=== PATIENT | female | born 1980 | race Caucasian/White ===

== ENCOUNTER 2023-04-29 09:33 | Outpatient (CLI) | payer BC, SELFPAY ==
[2023-04-29 10:02] LABS: Hematocrit 39.6 % (37.0-47.0); Hemoglobin 12.9 g/dL (12.0-15.0); Mean Corpuscular HGB Conc 32.6 g/dl (32-36); Mean Corpuscular Hemoglobin 29.1 pg (26-34); Mean Corpuscular Volume 89.2 fl (80-100); Mean Platelet Volume 8.6 fl (7.4-10.4); Platelet Count Result 331 k/mm3 (150-375); Red Blood Count 4.44 M/mm3 (4.2-5.4); Red Cell Distribution Width 13.4 % (11.5-14.5); White Blood Count 8.5 K/mm3 (4.5-10.0)
[2023-04-29 11:44] LABS: Alanine Aminotransferase 28 U/L (6-35); Albumin Level 4.5 g/dL (3.5-5.1); Alkaline Phosphatase 58 U/L (38-126); Anion Gap 11 mmol/L (8-16); Aspartate Amino Transferase 24 U/L (14-36); Bilirubin,Total 0.5 mg/dL (0.2-1.3); Blood Urea Nitrogen 15 mg/dL (7-17); Calcium 9.5 mg/dL (8.4-10.2); Carbon Dioxide 25 mmol/L (22-30); Chloride 104 mmol/L (98-107); Cholesterol 277 mg/dL (0-200); Estimated Glomerular Filt Rate > 60; Glucose 108 mg/dL (65-110); HDL Direct 34 mg/dL; Potassium 4.2 mmol/L (3.4-5.0); Sodium 140 mmol/L (137-145); Triglycerides 518 mg/dL (<150)
[2023-04-29 11:55] LABS: LDL Cholesterol Direct 142 mg/dL
[2023-04-29 11:58] LABS: Vitamin D 25 Hydroxy 21.5 ng/mL
== END 2023-04-29 09:34 | disposition home or self-care (01) ==
PROVIDERS: Visit Provider Internal Medicine Hematology & Oncology
DX: E78.2 Mixed hyperlipidemia (principal); E55.9 Vitamin D deficiency, unspecified
CPT/HCPCS: 36415; 80053; 80061; 82306; 85027

== ENCOUNTER 2024-11-09 19:05 | Emergency (ER) | payer OTHER, SELFPAY ==
--- NOTE | ~2024-11-09 | XR_ITS ---
XR finger 2nd RT min 2V Ordering provider: Nikkie Williamson APRN History: . SMASHING INJURY, DORSAL PHALANX PAIN AT PROXIMAL NAIL . Comparison: None. FINDINGS: BONES: Small bony fragment is seen adjacent the distal phalanx tuft medially. JOINT SPACES: Normal. SOFT TISSUES: Normal. IMPRESSION: Chip fracture in the tuft of the second finger distal phalanx. Reviewed, dictated and finalized at location A.
--- OUTSIDE RECORDS SUMMARY | 2024-11-09 19:07 | XMS_ITS | Clinical Summary ---
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 Name Role Phone [place], Irais Phillip MD Unavailable [phone] Javier Sethi MD Primary Care Provider [phone] Allergies Active Allergy Reactions Criticality Noted Date Comments Amitriptyline Other (See comments) Reaction: weight gain, Divalproex Other (See comments) Low Reaction: triggers migraine headaches, Methoserpidine Agitation,Chills,Diz zines s,Sweating High 12/19/2021 Metoprolol Shortness of breath, Other (See comments) Reaction: sob, chest pain, Propranolol Vision changes Medium Reaction: blurred vision, Topiramate Other (See comments) Reaction: difficulty concentrating, Verapamil Palpitations Reaction: palpitations, Medications cetirizine (ZyrTEC) 10 mg tablet Take 1 tablet (10 mg total) by mouth daily Active acetaminophen ER (TYLENOL) 650 mg 8 hr tablet Take 1 tablet (650 mg total) by mouth every 4 (four) hours as needed for pain Active diclofenac DR (VOLTAREN) 75 mg EC tablet Take 1 tablet (75 mg total) by mouth 2 (two) times a day 60 tablet 2 05/08/20 20 Active promethazine (PHENERGAN) 25 mg tabletIndication s:Nausea Take 1 tablet (25 mg total) by mouth every 6 (six) hours as needed for nausea or vomiting 30 tablet 12/18/19 21 Active venlafaxine XR (EFFEXOR-XR) 75 mg 24 hr capsule 09/17/19 24 Active eletriptan (RELPAX) 40 mg tablet TAKE ONE TABLET BY MOUTH TWO TIMES A DAY NEEDED FOR MIGRAINE. MAY REPEAT IN TWO HOURS IF UNRESOLVED. DO NOT EXCEED TWO TABLETS IN TWENTY-FOUR HOURS 6 tablet 5 12/04/19 24 Active ALPRAZolam XR (XANAX XR) 0.5 mg 24 hr tablet Take 1 tablet (0.5 mg total) by mouth every morning Active erenumab-aooe (Aimovig Autoinjector) 70 mg/mL auto-injector subcutaneous injection Inject 1 mL (70 mg total) under the skin every 30 (thirty) days 3 mL 2 07/04/19 25 Active losartan (COZAAR) 25 mg tabletIndication s:Hypertension, essential TAKE 1 TABLET (25 MG) BY MOUTH DAILY 30 tablet 11 07/04/19 25 Active cholecalciferol (VITAMIN D-3) 50,000 unit capsuleIndicatio ns:Vitamin D deficiency Take 1 capsule (50,000 Units total) by mouth once a week 12 capsule 1 08/16/19 25 Active Xywav 0.5 gram/mL solution Take 4.5 g at bedtime then take 2.5 - 4 hours later take 4.5 g 540 mL 3 10/21/19 25 Active solriamfetoL (Sunosi) 150 mg tabletIndication s:Hypersomnolenc e Take 1 tablet (150 mg total) by mouth daily 30 tablet 5 10/22/19 25 Active famotidine (PEPCID) 20 mg tablet Take 1 tablet (20 mg total) by mouth once 025 Discontinued Xywav 0.5 gram/mL solution Take 4.5 g by mouth 2 (two) times a day 540 mL 3 06/23/19 25 025 Discontinued(Re order) Sunosi 150 mg tabletIndication s:Hypersomnolenc e Take 1 tablet (150 mg total) by mouth daily 30 tablet 1 09/20/19 25 025 Discontinued(Re order) Active Problems Problem Noted Date Diagnosed Date Severe obesity 10/21/2024 Type 2 narcolepsy 11/20/2023 Hypersomnolence 10/28/2023 Chronic fatigue 05/05/2023 Assessment & Plan (01/21/2024 4:09 PM CDT): It was explained to the patient how this is a clinical diagnosis of exclusion, and there is no specific treatment Exercise is highly recommended but again this is making the patient more symptomatic Will upgrade TFTs and cortisol level She has no evidence of anemia, kidney or hepatic dysfunction Assessment & Plan (05/05/2023 3:57 PM TOMB MAKER HELPER): Multifactorial, will check additional labs including iron panel and B12 as patient is having muscle pain. Recommend weight loss. Patient is not exercising. Patient is not getting adequate sleep, recommended at least 8 hours nightly if not 9. Blood pressure is uncontrolled, will check echocardiogram. Hypertension, essential 05/05/2023 Assessment & Plan (11/05/2023 4:43 PM CDT): Blood pressure is well controlled, no longer taking stimulant medication. Doing well with losartan, blood pressure today 128/86. Assessment & Plan (05/05/2023 3:53 PM TOMB MAKER HELPER): Denies visual changes, headaches, chest pain, shortness of breath. Blood pressure increase secondary to stimulant medication, instructed patient to taper Adderall and discontinue. Prescribed losartan 25 mg daily. 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 Discussed concerns for increased stroke risk and cardiovascular disease with uncontrolled blood pressure. Hypertriglyceridemia 05/05/2023 Assessment & Plan (05/05/2023 3:59 PM TOMB MAKER HELPER): Unable to review labs however patient reports recent triglyceride around 500. Stressed the need to follow a lower fat diet and limit starchy foods. Instructed patient to start a fish oil supplement. Repeat labs in 3 months Irritable bowel syndrome wit h both constipation and diarrhea 04/28/2022 Assessment & Plan (10/28/2022 5:38 PM CDT): Stable; good response to bentyl. Assessment & Plan (04/28/2022 5:16 PM TOMB MAKER HELPER): Encouraged patient to keep food/symptom diary. Recommended prn use of miralax for constipation. Will trial prn use of dicyclomine, reviewed medication scheduling. Follow up if no improvement. Chronic right shoulder pain 04/28/2022 Assessment & Plan (04/28/2022 5:21 PM TOMB MAKER HELPER): No injury, pain present for the past 1 year and worsening in the last 4 months. Discussed plan to refer to PT following imaging. Avoid aggravating activity as able, complete steroid taper and trial of prn muscle relaxer. Chronic migraine w/o aura w/ o status migrainosus, not intractable 04/19/2021 Class 2 obesity due to exces s calories without serious comorbidity with body mass index (BMI) of 37.0 to 37.9 in adult 03/12/2021 Assessment & Plan (05/20/2024 12:27 PM TOMB MAKER HELPER): Congratulated patient on weight loss, 15 lb weight loss in the last 4 months. Assessment & Plan (05/05/2023 3:57 PM TOMB MAKER HELPER): Weight is overall stable, patient has not lost or gained any weight recently. Encouraged increase dietary protein and lower carb diet. Assessment & Plan (10/28/2022 5:40 PM CDT): Encourage exercise and healthy diet. Assessment & Plan (04/28/2022 4:11 PM TOMB MAKER HELPER): Discussed healthy diet and importance of regular physical activity. Assessment & Plan (10/10/2021 2:48 PM CDT): Discussed healthy diet and importance of regular physical activity. Assessment & Plan (03/12/2021 2:57 PM CDT): Discussed healthy diet and importance of regular physical activity. MOJGAN (obstructive sleep apnea) 03/12/2021 Assessment & Plan (05/20/2024 12:28 PM TOMB MAKER HELPER): Continue nightly CPAP use. Started Xywave to help with daytime somnolence. Managed by sleep med, reports sig improvement in sleep and continued improvement in daytime fatigue. Assessment & Plan (11/05/2023 4:44 PM CDT): Nightly CPAP Assessment & Plan (10/28/2022 5:39 PM CDT): Nightly cpap use, following with sleep med. Patient started on modafinil for excessive daytime sleepiness. Assessment & Plan (04/28/2022 5:16 PM TOMB MAKER HELPER): Patient wearing cpap nightly, reports significant improvement in sleep quality and energy. Still feeling afternoon fatigue. Reviewed cpap compliance shannon on patients smartphone. Assessment & Plan (10/10/2021 2:48 PM CDT): Recommend sleep study. Referral placed to neurology. Assessment & Plan (03/12/2021 5:57 PM CDT): Lavon:11 reports excessive daytime fatigue, and snoring w/apnea. Given referral to sleep med. Fatigue 03/12/2021 Assessment & Plan (04/28/2022 5:15 PM TOMB MAKER HELPER): Some improvement with use of cpap. Discussed adding exercise to current regimen. Will check lab work and continue to monitor. Assessment & Plan (03/12/2021 5:57 PM CDT): Discussed differential diagnoses and multiple factors influencing fatigue including anemia, endocrinopathies, vitamin deficiencies, hormonal imbalance, inadequate sleep, poor diet, and lack of exercise. Encouraged healthy eating and regular physical activity. Reviewed sleep hygiene. Will continue to monitor. Encounter for screening mammogram for breast can cer 03/12/2021 Assessment & Plan (05/20/2024 12:24 PM TOMB MAKER HELPER): Mammogram ordered, encouraged patient to call and schedule. Assessment & Plan (11/05/2023 4:43 PM CDT): Ordered previously, encouraged patient to call and schedule mammogram Assessment & Plan (05/05/2023 3:58 PM TOMB MAKER HELPER): Mammogram ordered Assessment & Plan (10/28/2022 5:38 PM CDT): Encouraged patient to call and schedule mammogram, ordered at last OV. Assessment & Plan (03/12/2021 5:57 PM CDT): Aware to call and schedule mammogram. Continue monthly SBE. Allergic rhinitis 08/17/2018 Assessment & Plan (10/14/2021 5:27 PM CDT): Continue antihistamine. Recommended sinus irrigation followed by nasal glucocorticoid. Assessment & Plan (09/30/2018 3:38 PM CDT): Continue Nasal saline followed Nasacort daily, wean down to lowest possible dosage Assessment & Plan (08/17/2018 4:02 PM CDT): Nasal saline followed by Nasacort or Flonase 2 sprays into each nostril while looking down over the sink, do not sniff in or blow nose after use. Change CT Sinus to CT Sinus per [facility] protocol Chronic right maxillary sinusitis 08/09/2018 Assessment & Plan (08/09/2018 12:48 PM TOMB MAKER HELPER): Advised Pt to move forward with sinus CT considering clinical findings as well as worsening sinus pressure over the recent months of increasing migraines. While so move for with ENT consultation to complete after she completes her head CT. 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 In moving forward with this, recommended Flomax doubling up today, daily dosing continuously until following up with Urology, cyst pushing fluids, monitoring for stone straining urine, Toradol and Percocet only to take p.r.n. She does understand limiting the use of narcotics. Red flags when to present ER were discussed Follow up with Urology in regard to condition or certainly with us in the interim Insomnia 08/06/2017 Overview (03/12/2018): Failed benadryl due to next day fatigue, melatonin ineffective, Nortriptyline due to weight gain/dry mouth, lunesta ineffective. Assessment & Plan (03/12/2018 8:36 AM CDT): Ambien p.r.n.. Assessment & Plan (09/05/2017 9:35 AM CDT): Sleep hygiene discussed. Will try trazodone 1st. If fails will call back for trial of Belsomra. Finally will try Ambien if needed. We will see her back in 6 months with physical and fasting lab sooner if needed. Mixed hyperlipidemia 08/06/2017 Assessment & Plan (05/20/2024 12:25 PM TOMB MAKER HELPER): Labs ordered. Assessment & Plan (11/05/2023 4:43 PM CDT): Slight improvement, patient is aware of need to make significant diet changes. Will continue to monitor Assessment & Plan (10/28/2022 5:37 PM CDT): Recommended patient take fish oil supplement to improve trigs, reviewed diet recommendation. Will repeat labs and continue to monitor. Assessment & Plan (04/28/2022 5:17 PM TOMB MAKER HELPER): Will check labs and make recommendations as needed. Assessment & Plan (03/12/2021 5:56 PM CDT): Reviewed lipid. Discussed diet and exercise recommendations. ASCVD low risk. Assessment & Plan (04/18/2019 3:07 PM TOMB MAKER HELPER): Low risk for ASCVD and therefore recommend diet exercise. Assessment & Plan (03/12/2018 8:36 AM CDT): Diet and exercise recommended. Vitamin D deficiency 08/06/2017 Assessment & Plan (11/05/2023 4:43 PM CDT): Patient is taking vitamin-D supplement, vitamin-D is improved. Assessment & Plan (05/05/2023 3:52 PM TOMB MAKER HELPER): Patient is longer taking vitamin-D supplement did not refill this. Vitamin-D is never range. Discussed how this could be contributing to her chronic fatigue and stressed the need to take his medication as prescribed. Assessment & Plan (10/28/2022 3:34 PM CDT): No longer taking vitamin D supplement Assessment & Plan (04/28/2022 5:17 PM TOMB MAKER HELPER): No longer taking vitamin d supplement. 03/2021 vitamin D=15. Will check labs today. Assessment & Plan (10/14/2021 5:29 PM CDT): Continues cholecalciferol 50,000 units weekly. Assessment & Plan (04/18/2019 3:07 PM TOMB MAKER HELPER): Continue supplementation and check level in 1 year. Chronic pain of right wrist 06/16/2017 Assessment & Plan (06/16/2017 3:24 PM TOMB MAKER HELPER): Diclofenac refilled. Orthopedic consultation to provider patient's choice arranged. Anxiety disorder 03/25/2017 Overview (04/18/2019): BuSpar ineffective. Dr Gonzalez Assessment & Plan (10/14/2021 5:28 PM CDT): Stable; moods controlled with current regimen. Assessment & Plan (04/18/2019 3:08 PM TOMB MAKER HELPER): Stable on venlafaxine and Xanax and follow up with her psychiatrist as they direct. Assessment & Plan (03/12/2018 8:36 AM CDT): Stable on venlafaxine. Follow up with psychiatrist as they direct. Assessment & Plan (09/05/2017 9:34 AM CDT): Currently stable and uses Xanax only infrequently. Psychiatric referral due to multiple diagnoses and either failures or intolerance to previous medications. Assessment & Plan (06/16/2017 3:24 PM TOMB MAKER HELPER): Patient notes improvement in her underlying anxiety. Xanax was refilled solely for p.r.n. use for anxiety/panic attacks. Assessment & Plan (04/23/2017 8:59 AM TOMB MAKER HELPER): Patient understands Xanax is not a long-term plan. This medication is to be utilized solely for anxiety/panic attacks and should be reserved for severe symptoms. She understands the addictiveness of this medication and was encouraged to use sparingly. She states she felt great today she took the Effexor XR. She would like to go back on a dot to avoid serotonin syndrome will discontinue her Zofran and use Compazine its place. She was also given Toradol to use in lieu of Relpax. Plan of care was discussed in detail as well as risk of serotonin syndrome with concurrent use of Relpax and Zofran. She verbalized understanding and was in agreement with the plan of care. Will see her back on a routine basis certainly sooner if indicated. Assessment & Plan (04/03/2017 1:15 PM CDT): Patient notes poor response to Effexor. It has been discontinued. She has Xanax for p.r.n. use and may take this up to 3 times daily as needed. She is to reserve this solely for panic attacks. We have tried multiple antianxiety/anti anxiety medications in the past without success. With persistent complaints would strongly encourage her to pursue psychiatry consultation. She has a follow-up appointment here in a couple of weeks. We will re-evaluate at that time. Assessment & Plan (03/25/2017 3:49 PM CDT): Patient states she has tried and failed multiple antidepressant/antianxiety medications in the past. She has taken Xanax without ill side effect. We discussed addictive component of Xanax. It is very good of what it done as and will frequently cause addictive tendencies. We recommend against routine use of Xanax. It is appropriate treatment for anxiety and panic attacks. She was given a short supply to keep on hand only for anxiety and panic attacks. For her daily anxiety symptoms I recommended the addition of Effexor XR. We will start with 75 mg once daily. We discussed potential side effect of medications. We discussed her prior diagnosis of bipolar disorder. She is to watch for any change in her mental health. She is to contact me with development of mood swings or depressive symptoms. She has discussed this with her fiancee as well so he can keep an eye out. She will closely follow up here in 1 month for repeat evaluation and to determine her response to medication. She was encouraged to reach out to me in the interim with any signs or symptoms that are of concern to her. We discussed serotonin syndrome with Relpax in detail. 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 Acute pain of left shoulder 11/19/2016 Assessment & Plan (11/19/2016 10:52 AM CDT): I have recommended we proceed with physical therapy, eval and treat. Will obtain x-ray of the left shoulder prior to leaving the office today. Close follow-up here with absolutely any change in worsening or non improvement of condition. She offered no further complaints and was in agreement with the plan of care. Subacromial bursitis of left shoulder joint 11/06 Assessment & Plan (11/19/2016 10:52 AM CDT): Recommended Medrol Dosepak for anti-inflammatory effect. Physical therapy to eval and treat. Orthopedic consultation with persistent complaints. She is to contact the office with absolutely any change in worsening or non improvement in condition. She verbalized understanding and was in agreement with the plan of care. History of irritable bowel syndrome 07/21/2016 Overview (08/06/2017): Cannot tolerate nortriptyline due to weight gain and dry mouth. Assessment & Plan (09/05/2017 9:32 AM CDT): High-fiber diet. Probiotics. GI referral if worsens. Atypical migraine 06/23/2014 Assessment & Plan (10/14/2021 5:27 PM CDT): Recommended continued follow up with neurology. Migraines are stable at this time. No changes in current medication regimen. Assessment & Plan (08/09/2018 2:39 PM TOMB MAKER HELPER): Considering Pt has previously tried multiple different medications including amitriptyline, propranolol, Topamax for preventative therapy, is also on Effexor for anxiety with little to no changes in her prevention of migraines, will go ahead and try preventative therapy with use of monthly aimovig starting off at 70 mg along with p.r.n. Use of Relpax as previously prescribed, F/U here in 1 month for re- evaluation. Will consider neurology consultation if unable to control migraines with medication therapy. * Pt declined office urine test is recommended that she stated that she just could offer. Two days ago. Goiter 10/22/2013 Overview (09/10/2016): GOITER NOS Assessment & Plan (01/21/2024 4:09 PM CDT): Will update thyroid ultrasound and TFTs Bipolar affective disorder 10/22/2013 Overview (09/10/2016): MANIC-DEPRESSIVE NOS Assessment & Plan (11/05/2023 4:44 PM CDT): Medications currently refilled by Dr. Mcfadden, patient is in need of a new psychiatrist. Referral placed. We discussed benefits of counseling/cognitive behavioral therapy Assessment & Plan (03/12/2021 3:01 PM CDT): Follows with psychiatry, Dr. Gonzalez. Gastroesophageal reflux disease 10/22/2013 Overview (09/10/2016): ESOPHAGEAL REFLUX Assessment & Plan (04/18/2019 3:08 PM TOMB MAKER HELPER): Well controlled without medication. Assessment & Plan (09/05/2017 9:32 AM CDT): Continue current PPI and the patient is aware of the long-term risks posed by chronic PPI usage. Magnesium level will be checked periodically. Calcium supplementation recommended. Migraine 12/02/2012 Overview (06/03/2023): Combo of zofran, relpax, then toradol if no relief. Failed amitriptyline, propranolol, Topamax. Assessment & Plan (03/12/2021 3:02 PM CDT): Doing well on monthly aimovig with sig improvement and using relpax as needed. Assessment & Plan (04/18/2019 3:07 PM TOMB MAKER HELPER): Continue aimovig monthly with great results and then use Relpax as needed. Assessment & Plan (03/12/2018 8:35 AM CDT): Intolerant of prophylactic medication. Continue Relpax, prochlorperazine as needed. Toradol if no relief. Assessment & Plan (04/23/2017 9:02 AM TOMB MAKER HELPER): Toradol p.r.n. migraine headache. This is proven effective in the past. Compazine p.r.n. nausea associated with headaches. Non-toxic multinodular goiter 01/20/2012 Overview (09/10/2016): Multinodular goiter (nontoxic) Assessment & Plan (04/18/2019 3:10 PM TOMB MAKER HELPER): No change on ultrasound over multiple years. No current symptoms today. Check thyroid levels yearly and repeat ultrasound if symptoms dictate. Assessment & Plan (03/12/2018 8:35 AM CDT): Check yearly ultrasound and thyroid studies. Assessment & Plan (09/05/2017 9:32 AM CDT): Yearly TSH. Thyroid ultrasound. Resolved Problems Problem Noted Date Diagnosed Date Resolved Date Class 2 obesity due to exces s calories with body mass index (BMI) of 39.0 to 39.9 in adult 10/10/2021 05/20/2024 Assessment & Plan (01/21/2024 4:05 PM CDT): Encouraged to work on low calorie diet Will try phentermine, which also can help some with the fatigue Coccyx pain 10/25/2019 05/20/2024 Healthcare maintenance 04/18/201903/12 Assessment & Plan (04/18/2019 3:09 PM TOMB MAKER HELPER): Flu shot each March. Tetanus booster every 10 years. Diet exercise for weight loss discussed. Will see her back in 1 year for physical fasting lab sooner if needed. Contusion of right knee 11/30/201810/2020 Sprain of right knee, initial encounter 11/30/2018 03/12/2021 Arm contusion, right, initial encounter 11/30/2018 03/12/2021 Fall, accidental, initial encounter 11/30/2018 03/12/2021 Acute dysfunction of left eustachian tube 11/29/2018 11/29/2018 Benign paroxysmal positional vertigo of left ear 11/29/2018 11/29/2018 Assessment & Plan (11/29/2018 3:41 PM CDT): Clinically suggest of BPPV. Recommending p.r.n. Meclizine, and treatment of suspected ET dysfunction. Exercises given for Pt to implemented home, consultation for vestibular therapy w/o any improvement sx. RTC in 1-2 weeks w/o improvement or any worsening in sx. Cyst removal-right wrist x3 08/03/2018 08/03/2018 mortons neuroma; Comments: [facility] 07/24/2014 08/03/2018 08/03/2018 Postoperative visit 07/07/2018 08/03/19 19 Adnexal cyst 04/15/2018 08/03/2018 Bronchitis 04/03/2017 08/06/2017 Assessment & Plan (04/03/2017 1:14 PM CDT): Humidification, fluids, and rest were recommended. Patient was instructed to use albuterol inhaler as needed for bronchospasm/coughing fits. She may use Tessalon Perles p.r.n. cough during the day. She will reserve Cheratussin for use at bedtime. She is to observe for signs and symptoms of secondary infection which were reviewed. She is to contact the office should the symptoms arise. 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); Hypersomnia; MOJGAN (obstructive sleep apnea); Obesity, unspecified class, unspecified obesity type, unspecified whether serious comorbidity present; Hypersomnolence; Severe obesity (HCC) 10/21/2024 Telephone [facility] [address] [place] [address] [address] [place] [address] Vidhya Linares MA 09/01/2024 9:37 AM CDT - 09/01/2024 11:59 PM CDT Hospital Encounter [facility] [address] [place] [address] Abnormal mammogram of left breast Discharge Disposition: Discharge to home or self care 09/01/2024 9:37 AM CDT - 09/01/2024 11:59 PM CDT Hospital Encounter [facility] [address] [place] [address] Abnormal mammogram of left breast Discharge Disposition: Discharge to home or self care 09/01/2024 Results [facility] [address] [id number] Arelis Simmons NP Diagnostic Mammogram Left W [place] from Last 3 Months Immunizations Immunization Administration Dates Next Due COVID-19 MRNA (MODERNA) .5 M L (50 MCG) VACCINE (12 YEARS AND UP) 03/16/2023 COVID-19 mRNA (PFIZER) 0.3 m L (30 mcg) vaccine (12 years and up) 04/17/2023 DTaP 5 Pertussis 11/04/1985, 2,01/15/1981,11/10,1980 Hep B Vaccine 05/30/2013,01/03/2013,11/16/2012 Influenza, Quadrivalent, Spl it, Preservative Free, Intramuscular 03/21/2015,02/27/2014 Influenza, Trivalent, IM (MDV) 03/09/2023,2010 Influenza, Trivalent, Preser vative Free, Intramuscular 04/12/2024 Influenza, Unspecified 02/07/2023,2021,03/22/2021,03/12(Deferred: Patient Refused - getting at work),03/08/2020,03/08/2020,03/22/2019 ,03/22/2019,03/03/2019(Deferred: Patient ill today),03/09/2017 MMR 01/20/1991,10/15/1981 OPV 11/04/1985, 2,1980,08/30 PPD TEST 07/15/2023 Pfizer SARS-CoV-2 Monovalent Vaccination (12+ Yrs) PURPLE 05/23/2021 Pfizer Sars-Cov-2 Bivalent V accination (12+ YRS) 04/16/2022 Td, adsorbed 12/08/2011 Tdap 12/22/2011 Surgical History Surgery Date Site/Laterality Comments OTHER SURGICAL HISTORY 06/08/2007 - 06/07/2008 nasal/sinus surgery OTHER SURGICAL HISTORY 06/08/2010 - 06/07/2011 abnormal PAP: colonscopy/LEEP LOOP ELECTROSURGICAL EXCISION PROCEDURE 06/08/2010 - 06/07/2011 LEEP HERNIA REPAIR 06/08/1984 - 06/07/1985 Hernia repair OTHER SURGICAL HISTORY hernia repair x 2 SINUS SURGERY Sinus surgery OTHER SURGICAL HISTORY wrist surgery x 3 OTHER SURGICAL HISTORY 06/08/2013 - 06/07/2014 Right mortons neuroma: surgical excision 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; removed by Raman Amezcua Gastric reflux Chronic kidney disease Migraines Anxiety Family History Medical History Relation Name Comments Other Brother 2 Alive and well; Acute promyoletic luekemia Father Cancer Father Coronary artery disease Father Leyla nary artery disease; Diabetes Father Diabetes type II Father Diabetes -T ype 2; Heart disease Father Heart disease; Hyperlipidemia Father Hyperlipidemi a; Hypertension Father Hypertension; Thyroid disease Maternal Grandmother Thyr oid disease; /Thyroid disorder; Other Mother Alive and well; Diabetes Mother's Brother Diabetes me llitus; Hyperlipidemia Mother's Sister Hyperlipid emia; Other Sister 2 Alive and well; Anesthesia problems Neg Hx Breast cancer Neg Hx Ovarian cancer Neg Hx Thyroid cancer Neg Hx Relation Name Status Comments Brother 1 Alive Brother 2 Father (Age 66) Maternal Grandmother Mother Alive Mother's Brother Mother's Sister Sister 1 Alive Sister 2 Social History Tobacco Use Types Packs/Day Years Used Date Smoking Tobacco: Never Smokeless Tobacco: Never Tobacco Cessation:Counseling Given: Not Answered Alcohol Use Standard Drinks/Week Comments No 0 (1 standard drink = 0.6 oz pur e alcohol) AUDIT-C Answer Date Recorded Q1: How often do you have a drink containing alcohol? Never 01/21/2024 Q2: How many drinks containi ng alcohol do you have on a typical day when you are drinking? Patient does not drink Q3: How often do you have si x or more drinks on one occasion? 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78 10/21/2024 8:22 AM CDT Plan of Treatment Health Maintenance Due Date Last Done Comments Cervical Cancer Screening 1980 Hepatitis C Screening 1980 Varicella Vaccines (1 of 2 - 13+ 2-dose series) 1993 Regular Well Visit/Exam 18-64 05/08/2021 05/08/2020, 04/18/2019, 08/03/2018, Additional history exists DTaP/Tdap/Td Vaccine (7 - Td or Tdap) 12/21/2021 12/22/2011, 12/08/2011, 11/04/1985, Additional history exists Depression Screening 05/20/2025 05/20/2024, 01/21/2024, 11/05/2023, Additional history exists Breast Cancer Screening-Mammogram 07/18/2025 07/18/2024 Hepatitis B Screening Completed 05/30/2013 , 01/03/2013, 11/16/2012 Covid-19 Vaccine Completed 04/12/2024, 03/2023, 03/16/2023, Additional history exists Influenza Vaccine Completed 04/12/2024, , 02/07/2023, Additional history exists HPV Vaccines Aged Out No longer eligi ble based on patient's age to complete this topic Pneumococcal vaccine <65 Aged Out No longer eligible based on patient's age to complete this topic Procedures Procedure Name Priority Date/Time Associated Diagnosis Comments US BREAST LEFT LIMITED Schedule Routine, Read Routine (OP Routine) 09/01/2024 10:21 AM CDT Abnormal mammogram of left breast DIAGNOSTIC MAMMOGRAM LEFT W CHARAN Schedule Routine, Read Routine (OP Routine) 09/01/2024 9:50 AM CDT Abnormal mammogram of left breast SCREENING MAMMOGRAM BILATERAL W CHARAN Schedule Routine, Read Routine (OP Routine) 07/18/2024 8:50 AM TOMB MAKER HELPER Encounter for screening mammogram for breast cancer from Last 3 Months or Most Recently Relevant to Health Maintenance Results * US Breast Left Limited (09/01/2024 10:21 AM CDT) Anatomical Region Laterality Modality Breast Left Ultrasound 09/01/2024 10:3 8 AM CDT Impressions 09/01/2024 10:38 AM CDT The mammographic focal asymmetries in the upper outer left breast are probably benign. A follow-up left diagnostic mammogram is recommended in 6 months. BI-RADS: 3 - Probably benign The patient has been or will be contacted. The patient will be entered into a reminder system with a target due date of 6 months for her next mammogram. Electronically signed by: Lori Aranda M.D. Narrative 09/01/2024 10:38 AM CDT EXAMINATION: DIAGNOSTIC MAMMOGRAM LEFT W CHARAN, US BREAST LEFT LIMITED ORDERING HEALTHCARE PROVIDER: ARELIS SIMMONS HISTORY: Focal asymmetries in the left breast seen on screening mammogram. COMPARISON: 07/18/2024 TECHNIQUE: CC and MLO spot compression and lateral views of the Left breast were obtained with digital technique using breast tomosynthesis with C view. Computer aided detection was utilized. This was followed by targeted left breast sonography. FINDINGS: There are scattered areas of fibroglandular density. Additional views of the left breast were obtained. There are persistent focal asymmetries in the lateral left breast at the 2 to 3 o'clock position posteriorly. Further evaluation was obtained with sonography. Targeted left breast ultrasound: Sonographic evaluation of the upper outer left breast was performed. There is a benign-appearing lymph node at the 1 o'clock position, 10 cm from the nipple measuring 6 mm which corresponds to a lymph node seen mammographically. No lesions are seen to correspond to the focal asymmetry seen mammographically. The mammographic lesions will be classified as probably benign. us Arelis Simmons CODING TEAM LEAD IMG MAMMO PROCEDURES Final Result * Diagnostic Mammogram Left W Charan (09/01/2024 9:50 AM CDT) Anatomical Region Laterality Modality Breast Left Mammography 09/01/2024 10:3 8 AM CDT Impressions 09/01/2024 10:38 AM CDT The mammographic focal asymmetries in the upper outer left breast are probably benign. A follow-up left diagnostic mammogram is recommended in 6 months. BI-RADS: 3 - Probably benign The patient has been or will be contacted. The patient will be entered into a reminder system with a target due date of 6 months for her next mammogram. Electronically signed by: Lori Aranda M.D. Narrative 09/01/2024 10:38 AM CDT EXAMINATION: DIAGNOSTIC MAMMOGRAM LEFT W CHARAN, US BREAST LEFT LIMITED ORDERING HEALTHCARE PROVIDER: ARELIS SIMMONS HISTORY: Focal asymmetries in the left breast seen on screening mammogram. COMPARISON: 07/18/2024 TECHNIQUE: CC and MLO spot compression and lateral views of the Left breast were obtained with digital technique using breast tomosynthesis with C view. Computer aided detection was utilized. This was followed by targeted left breast sonography. FINDINGS: There are scattered areas of fibroglandular density. Additional views of the left breast were obtained. There are persistent focal asymmetries in the lateral left breast at the 2 to 3 o'clock position posteriorly. Further evaluation was obtained with sonography. Targeted left breast ultrasound: Sonographic evaluation of the upper outer left breast was performed. There is a benign-appearing lymph node at the 1 o'clock position, 10 cm from the nipple measuring 6 mm which corresponds to a lymph node seen mammographically. No lesions are seen to correspond to the focal asymmetry seen mammographically. The mammographic lesions will be classified as probably benign. Arelis Simmons NP IM MAMMO PROCEDURES Final Result * (ABNORMAL) SCREENING MAMMOGRAM BILATERAL W CHARAN (07/18/2024 8:50 AM TOMB MAKER HELPER) Anatomical Region Laterality Modality Breast Bilateral Mammography 07/18/2024 9:29 AM TOMB MAKER HELPER Impressions 07/18/2024 9:29 AM TOMB MAKER HELPER 2 focal asymmetries in the outer mid left breast are indeterminant. The patient should return for additional diagnostic mammographic images of the left breast with targeted left breast ultrasound scheduled. BI-RADS: BI-RADS Category 0: Incomplete - Need Additional Imaging Evaluation. The patient has been or will be contacted. Electronically signed by: Kirsty Miguel M.D. Narrative 07/18/2024 9:29 AM TOMB MAKER HELPER EXAMINATION: SCREENING MAMMOGRAM BILATERAL W CHARAN ORDERING HEALTHCARE PROVIDER: ARELIS SIMMONS HISTORY: Routine screening mammography. COMPARISON: Baseline study TECHNIQUE: CC and MLO views of the bilateral breasts were obtained with digital technique using breast tomosynthesis with C view. Computer aided detection was utilized. FINDINGS: DENSITY: There are scattered areas of fibroglandular density. BREASTS: There are 2 focal asymmetries in the outer mid left breast. There are no other suspicious masses, suspicious calcifications, or other suspicious findings in either breast. 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
--- OUTSIDE RECORDS SUMMARY | 2024-11-09 19:07 | XMS_ITS | Clinical Summary ---
Author Organization [facility] Address [address] [place] [address] Care Team Providers Care Emergency Management Coordinator Name Role Phone Unavailable Primary Care Provider Unavailabl e Medications solriamfetoL (Sunosi) 75 mg Tablet Take 1 tablet (75 mg) by mouth once daily. 30 Tablet 1 05/23/2023 10:21 AM AIRFIELD DEFENCE GUARD 3 Active amoxicillin (AMOXIL) 500 mg capsule Take 1 Capsule (500 mg) by mouth every 8 hours until gone. 21 Capsule 06/15/2023 12:52 PM AIRFIELD DEFENCE GUARD 4 Active venlafaxine (EFFEXOR XR) 75 mg Extended Release 24 hour capsule Take 3 Capsules (225 mg) by mouth daily in the morning. 270 Capsule 10/06/2023 5:55 PM CDT 4 Active solriamfetoL (Sunosi) 150 mg Tablet Take 1 tablet by mouth daily. 30 Tablet 1 10/06/2023 5:55 PM CDT 4 Active eletriptan (RELPAX) 40 mg Tablet TAKE ONE TABLET BY MOUTH TWO TIMES A DAY NEEDED FOR MIGRAINE. MAY REPEAT IN TWO HOURS IF UNRESOLVED. DO NOT EXCEED TWO TABLETS IN TWENTY-FOUR HOURS 6 Tablet 5 06/11/2024 4:40 PM AIRFIELD DEFENCE GUARD 4 Active Phentermine 30 mg Capsule Take 1 capsule by mouth daily in the morning. 30 Capsule 4 01/22/2024 6:05 PM CDT 4 Active losartan (COZAAR) 25 mg tablet Take 1 Tablet (25 mg) by mouth daily. 30 Tablet 11 05/15/2024 2:54 PM AIRFIELD DEFENCE GUARD 4 Active venlafaxine (EFFEXOR XR) 75 mg Extended Release 24 hour capsule Take 3 Capsules (225 mg) by mouth daily. 270 Capsule 4 Active erenumab-aooe (AIMOVIG) 70 mg/mL Auto-Injector Inject 1 mL (70 mg) by subcutaneous injection every 30 days. 3 mL 2 06/11/2024 4:40 PM AIRFIELD DEFENCE GUARD 4 Active venlafaxine (EFFEXOR XR) 75 mg Extended Release 24 hour capsule Take 3 Capsules (225 mg) by mouth daily. 270 Capsule 07/19/2024 5:36 PM AIRFIELD DEFENCE GUARD 5 Active atomoxetine (STRATTERA) 40 mg capsule Take 1 Capsule (40 mg) by mouth daily in the morning. 30 Capsule 08/17/2024 6:45 PM CDT 5 Active cholecalciferol 1,250 mcg (50,000 unit) Capsule Take 1 capsule (50,000 Units total) by mouth once a week 12 Capsule 1 08/17/2024 6:45 PM CDT 5 Active solriamfetoL (Sunosi) 150 mg Tablet Take 1 tablet (150 mg total) by mouth daily 30 Tablet 1 10/22/2024 10:09 AM CDT 5 Active solriamfetoL (Sunosi) 150 mg Tablet Take 1 tablet (150 mg total) by mouth daily 30 Tablet 5 5 Active methylphenidate ER 18 mg tablet,extended release 24 hr Take 1 Tablet (18 mg) by mouth daily in the morning. Max Daily Amount: 18 mg 30 Tablet 11/05/2024 9:23 AM CDT 5 12/06/19 25 Active Encounters Date Type Department Care Team Description 11/01/2024 External Device Data STL ABSTRACTION Provider, Abstract 10/26/2024 External Device Data ST[facility] ABSTRACTION Provider, Abstract 10/25/2024 External Device Data [facility] ABSTRACTION Provider, Abstract 08/24/2024 External Device Data [facility] ABSTRACTION Provider, Abstract 08/13/2024 External Device Data ST[facility] ABSTRACTION Provider, Abstract 08/12/2024 External Device Data ST[facility] ABSTRACTION Provider, Abstract 08/10/2024 External Device Data STL ABSTRACTION Provider, Abstract from Last 3 Months Immunizations Immunization Administration Dates Next Due Influenza Seasonal Unspecified Formulation IM Social History Tobacco Use Types Packs/Day Years Used Date Smoking Tobacco: Never Assessed Comments Unknown Sex and Gender Information Value Date Recorded Sex Assigned at Not on file Legal Sex Female 11:04 PM CDT Gender Identity Not on file Sexual Orientation Not on file Plan of Treatment Health Maintenance Due Date Last Done Comments DTAP/TDAP/TD VACCINES (1 - Tdap) 1999 HEPATITIS B VACCINES (1 of 3 - 19+ 3-dose series) 1999 HPV/Cotest (21-29) 2001 CERVICAL CANCER SCREENING 2010 HPV/Cotest (30-65) 2010 PAP SMEAR 2010 BREAST CANCER SCREENING 2020 INFLUENZA VACCINE (#1) 2024 03/09/2023 HPV VACCINES Aged Out No longer eligi ble based on patient's age to complete this topic Insurance [employer] (INTERNAL) [facility] [employer] RX Member Subscriber Plan / Payer (Ef fective 2024-Present) Name:Caty Howard Relation to Subscriber:Self Name:Caty Howard Subscriber ID:Not on file Payer ID:Not on file Group ID:[id number] Type:RX Commercial Address: AME[address] [employer] (INTERNAL) [facility] [employer]
--- OUTSIDE RECORDS SUMMARY | 2024-11-09 19:07 | XMS_ITS | Continuity of Care Document ---
Author Organization [facility] Address [address] [place] [address] [address] [place] [address] Phone Care Team Providers Care Rpg Developer Name Role Phone Butler YANELY/Mary Barnett CHT Unavailable Amberly vailable Procedures Procedure Date Progress Note Therapeutic Exercise Therapeutic Activities Neuromuscular Re-Ed Manual Therapy Hot or Cold Pack Ultrasound Therapeutic Exercise Therapeutic Activities Neuromuscular Re-Ed Manual Therapy Hot or Cold Pack Ultrasound Therapeutic Exercise Therapeutic Activities Neuromuscular Re-Ed Manual Therapy Hot or Cold Pack Ultrasound Therapeutic Exercise Therapeutic Activities Neuromuscular Re-Ed Manual Therapy Hot or Cold Pack Ultrasound Therapeutic Exercise Therapeutic Activities Neuromuscular Re-Ed Manual Therapy Hot or Cold Pack Ultrasound Therapeutic Exercise Therapeutic Activities Neuromuscular Re-Ed Manual Therapy Hot or Cold Pack Ultrasound Therapeutic Exercise Therapeutic Activities Neuromuscular Re-Ed Manual Therapy Hot or Cold Pack Ultrasound OT Evaluation Low Complexity Therapeutic Exercise Neuromuscular Re-Ed Hot or Cold Pack Advance Directives Directive Yes / No Effective Date File Name No Information Encounters Encounter Description Practice Location Reason(s) For Visit Diagnoses Date Provider Providers Copied on Encounter [facility] [address] [place] [address], [id number], tel:[phone] Jaquan Pain in right wristStiffness of left wrist, not elsewhere classifiedWeakness Apr-0 3-201 8 Butler Mary. [address] [facility], [facility] [address], [place], [facility], [place]. tel:[phone] Referring Provider: Migue Patel [facility] [address], [place], [address]. tel:[phone], [place], [place], [id number], tel:[phone] [facility] Pain in right wristStiffness of left wrist, not elsewhere classifiedWeakness Aug-3 0-201 8 Butler Mary. [address] [facility], [address], [address], [place]. tel:[phone] Referring Provider: Lee Patel1 [facility] [address], [place], [address]. tel:[phone], [place], [place], [id number], tel:[phone] Jaquan Pain in right wristStiffness of left wrist, not elsewhere classifiedWeakness Aug-2 8-201 8 Butler Mary. [address] [facility], [address], [place], [place], [facility], [place]. tel:[phone] Referring Provider: Lee Patel1 [facility] [address], [place], [address]. tel:[phone] [address], [place], [place], [id number], tel:[phone] Jaquan Pain in right wristStiffness of left wrist, not elsewhere classifiedWeakness Mar-2 3-201 8 Carrie Hernandez. [address] [place] [address], [address], [place], [facility], [place]. tel:[phone] Referring Provider: Boom Sewell, Lee1 [facility] [address], [place], [address]. tel:[phone] [address], [place], [place], [id number], tel:[phone] Jaquan No Information Mar-1 6-201 8 Butler Mary. [address] [place] [address], [address], [place], [facility], [place]. tel:[phone] Referring Provider: Migue Patel [facility] [address], [place], [address]. tel:[phone], [place], [place], [id number], [place] tel:[phone] [facility] No Information Mar-1 4-201 8 Carrie Fuchsah. [address] [place] [address], [address], [place], [facility], [place]. tel:[phone] Referring Provider: Migue Patel [facility] [address], [place], [address]. tel:[phone], [id number], [place] tel:[phone] [facility] No Information Mar-0 9-201 8 Carrie Hernandez. [address] [place] [address], [address], [place], [facility], [place]. tel:[phone] Referring Provider: Lee Patel[address], [place], [address]. tel:[phone], [place], [place], [id number], [place] tel:[phone] Jaquan Pain in right wristStiffness of left wrist, not elsewhere classifiedWeakness Mar-0 6-201 8 Carrie Hernandez. [address] [facility], [address], [place], [address], [place]. tel:[phone] Referring Provider: Boom Sewell, [address] [place] [address] [address], [place], [address]. tel:[phone] Family History Family Member Type Diagnosis Age At Onset No Information Payers Payer name Insurance type Covered libertarian ID Authorzarinaa giovanni(s) Aileen CI [id number] Social History Type Description Quantity Date Captured Comments Sex Female Smoking Status No Information Chief Complaint And Reason For Visit No Information Reason For Referral Reason For Referral No Information History Of Present Illness Encounter Date Complaint History Of Prese nt Illness No Information Functional Status Date Functional Assessmen t No Information Instructions Date Instruction Additional Infor mation No Information Assessments Type Assessment Date No Information Patient Care Teams Name Effective Dates (start - stop) Status Members No Information
--- OUTSIDE RECORDS SUMMARY | 2024-11-09 19:07 | XMS_ITS | Referral Summary ---
Author Organization [facility] Address [address] [place] [address] Care Team Providers Care Behavioral Services Tech Name Role Phone Wallis, Irais Phillip MD Unavailable [phone] Javier Sethi MD Primary Care Provider [phone] Encounters Date Type Department Care Team Description 10/21/2024 Telephone [facility] [address] [place] [address] [address] [place] [address] Vidhya Linares MA 10/21/2024 8:15 AM CDT Office Visit [facility] at [address] [place] [address] Kenna Mims MD 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); Hypersomnia; MOJGAN (obstructive sleep apnea); Obesity, unspecified class, unspecified obesity type, unspecified whether serious comorbidity present; Hypersomnolence; Severe obesity (HCC) 09/01/2024 Results [facility]Up [facility] [address] [address] Arelis Simmons NP Diagnostic Mammogram Left W Charan 09/01/2024 9:37 AM CDT - 09/01/2024 11:59 PM CDT Hospital Encounter [facility] [address] [place] [address] Abnormal mammogram of left breast Discharge Disposition: Discharge to home or self care 09/01/2024 9:37 AM CDT - 09/01/2024 11:59 PM CDT Hospital Encounter [facility] [address] [place] [address] Abnormal mammogram of left breast Discharge Disposition: Discharge to home or self care from Last 3 Months Allergies Active Allergy Reactions Criticality Noted Date [...] dysfunction Assessment & Plan (05/05/2023 3:57 PM GASOLINE PLANT OPERATOR): Multifactorial, will check additional labs including iron [...] 128/86. Assessment & Plan (05/05/2023 3:53 PM GASOLINE PLANT OPERATOR): Denies visual changes, headaches, chest pain, shortness [...] 05/05/2023 Assessment & Plan (05/05/2023 3:59 PM GASOLINE PLANT OPERATOR): Unable to review labs however patient reports [...] bentyl. Assessment & Plan (04/28/2022 5:16 PM GASOLINE PLANT OPERATOR): Encouraged patient to keep food/symptom diary. Recommended prn use of miralax for constipation. Will trial prn use of dicyclomine, reviewed medication scheduling. Follow up if no improvement. Chronic right shoulder pain 04/28/2022 Assessment & Plan (04/28/2022 5:21 PM GASOLINE PLANT OPERATOR): No injury, pain present for the past [...] 03/12/2021 Assessment & Plan (05/20/2024 12:27 PM GASOLINE PLANT OPERATOR): Congratulated patient on weight loss, 15 lb weight loss in the last 4 months. Assessment & Plan (05/05/2023 3:57 PM GASOLINE PLANT OPERATOR): Weight is overall stable, patient has not lost or gained any weight recently. Encouraged increase dietary protein and lower carb diet. Assessment & Plan (10/28/2022 5:40 PM CDT): Encourage exercise and healthy diet. Assessment & Plan (04/28/2022 4:11 PM GASOLINE PLANT OPERATOR): Discussed healthy diet and importance of regular physical activity. Assessment & Plan (10/10/2021 2:48 PM CDT): Discussed healthy diet and importance of regular physical activity. Assessment & Plan (03/12/2021 2:57 PM CDT): Discussed healthy diet and importance of regular physical activity. MOJGAN (obstructive sleep apnea) 03/12/2021 Assessment & Plan (05/20/2024 12:28 PM GASOLINE PLANT OPERATOR): Continue nightly CPAP use. Started Xywave to help with daytime somnolence. Managed by sleep med, reports sig improvement in sleep and continued improvement in daytime fatigue. Assessment & Plan (11/05/2023 4:44 PM CDT): Nightly CPAP Assessment & Plan (10/28/2022 5:39 PM CDT): Nightly cpap use, following with sleep med. Patient started on modafinil for excessive daytime sleepiness. Assessment & Plan (04/28/2022 5:16 PM GASOLINE PLANT OPERATOR): Patient wearing cpap nightly, reports significant improvement in sleep quality and energy. Still feeling afternoon fatigue. Reviewed cpap compliance shannon on patients smartphone. Assessment & Plan (10/10/2021 2:48 PM CDT): Recommend sleep study. Referral placed to neurology. Assessment & Plan (03/12/2021 5:57 PM CDT): [place]:11 reports excessive daytime fatigue, and snoring w/apnea. Given referral to sleep med. Fatigue 03/12/2021 Assessment & Plan (04/28/2022 5:15 PM GASOLINE PLANT OPERATOR): Some improvement with use of cpap. Discussed [...] 03/12/2021 Assessment & Plan (05/20/2024 12:24 PM GASOLINE PLANT OPERATOR): Mammogram ordered, encouraged patient to call and schedule. Assessment & Plan (11/05/2023 4:43 PM CDT): Ordered previously, encouraged patient to call and schedule mammogram Assessment & Plan (05/05/2023 3:58 PM GASOLINE PLANT OPERATOR): Mammogram ordered Assessment & Plan (10/28/2022 5:38 [...] 08/09/2018 Assessment & Plan (08/09/2018 12:48 PM GASOLINE PLANT OPERATOR): Advised Pt to move forward with sinus [...] 04/13/2018 Assessment & Plan (04/13/2018 10:52 AM GASOLINE PLANT OPERATOR): Negative abdominal/pelvic CT scan aside from a small adnexal cyst which is not record changer tester the last 3 weeks since last abdominal [...] Assessment & Plan (03/12/2018 8:36 AM CDT): Kevinien alvin. Assessment & Plan (09/05/2017 9:35 AM CDT): Sleep hygiene discussed. Will try trazodone 1st. If fails will call back for trial of Belsomra. Finally will try Ambien if needed. We will see her back in 6 months with physical and fasting lab sooner if needed. Mixed hyperlipidemia 08/06/2017 Assessment & Plan (05/20/2024 12:25 PM GASOLINE PLANT OPERATOR): Labs ordered. Assessment & Plan (11/05/2023 4:43 PM CDT): Slight improvement, patient is aware of need to make significant diet changes. Will continue to monitor Assessment & Plan (10/28/2022 5:37 PM CDT): Recommended patient take fish oil supplement to improve trigs, reviewed diet recommendation. Will repeat labs and continue to monitor. Assessment & Plan (04/28/2022 5:17 PM GASOLINE PLANT OPERATOR): Will check labs and make recommendations as needed. Assessment & Plan (03/12/2021 5:56 PM CDT): Reviewed lipid. Discussed diet and exercise recommendations. ASCVD low risk. Assessment & Plan (04/18/2019 3:07 PM GASOLINE PLANT OPERATOR): Low risk for ASCVD and therefore recommend diet exercise. Assessment & Plan (03/12/2018 8:36 AM CDT): Diet and exercise recommended. Vitamin D deficiency 08/06/2017 Assessment & Plan (11/05/2023 4:43 PM CDT): Patient is taking vitamin-D supplement, vitamin-D is improved. Assessment & Plan (05/05/2023 3:52 PM GASOLINE PLANT OPERATOR): Patient is longer taking vitamin-D supplement did not refill this. Vitamin-D is never range. Discussed how this could be contributing to her chronic fatigue and stressed the need to take his medication as prescribed. Assessment & Plan (10/28/2022 3:34 PM CDT): No longer taking vitamin D supplement Assessment & Plan (04/28/2022 5:17 PM GASOLINE PLANT OPERATOR): No longer taking vitamin d supplement. 03/2021 vitamin D=15. Will check labs today. Assessment & Plan (10/14/2021 5:29 PM CDT): Continues cholecalciferol 50,000 units weekly. Assessment & Plan (04/18/2019 3:07 PM GASOLINE PLANT OPERATOR): Continue supplementation and check level in 1 year. Chronic pain of right wrist 06/16/2017 Assessment & Plan (06/16/2017 3:24 PM GASOLINE PLANT OPERATOR): Diclofenac refilled. Orthopedic consultation to provider patient's choice arranged. Anxiety disorder 03/25/2017 Overview (04/18/2019): BuSpar ineffective. Dr Gonzalez Assessment & Plan (10/14/2021 5:28 PM CDT): Stable; moods controlled with current regimen. Assessment & Plan (04/18/2019 3:08 PM GASOLINE PLANT OPERATOR): Stable on venlafaxine and Xanax and follow [...] medications. Assessment & Plan (06/16/2017 3:24 PM GASOLINE PLANT OPERATOR): Patient notes improvement in her underlying anxiety. Xanax was refilled solely for p.r.n. use for anxiety/panic attacks. Assessment & Plan (04/23/2017 8:59 AM GASOLINE PLANT OPERATOR): Patient understands Xanax is not a long-term [...] regimen. Assessment & Plan (08/09/2018 2:39 PM GASOLINE PLANT OPERATOR): Considering Pt has previously tried multiple different [...] REFLUX Assessment & Plan (04/18/2019 3:08 PM GASOLINE PLANT OPERATOR): Well controlled without medication. Assessment & Plan [...] needed. Assessment & Plan (04/18/2019 3:07 PM GASOLINE PLANT OPERATOR): Continue aimovig monthly with great results and then use Relpax as needed. Assessment & Plan (03/12/2018 8:35 AM CDT): Intolerant of prophylactic medication. Continue Relpax, prochlorperazine as needed. Toradol if no relief. Assessment & Plan (04/23/2017 9:02 AM GASOLINE PLANT OPERATOR): Toradol p.r.n. migraine headache. This is proven effective in the past. Compazine p.r.n. nausea associated with headaches. Non-toxic multinodular goiter 01/20/2012 Overview (09/10/2016): Multinodular goiter (nontoxic) Assessment & Plan (04/18/2019 3:10 PM GASOLINE PLANT OPERATOR): No change on ultrasound over multiple years. [...] 04/18/201903/12 Assessment & Plan (04/18/2019 3:09 PM GASOLINE PLANT OPERATOR): Flu shot each March. Tetanus booster every [...] wrist x3 08/03/2018 08/03/2018 mortons neuroma; Comments: [facility] 07/24/2014 08/03/2018 08/03/2018 Postoperative visit 07/07/2018 08/03/19 [...] 01/09/201108/03 Sinus surgery -cyst removal 06/08/2008 08/03/2018 Immunizations Immunization Administration Dates Next Due COVID-19 [...] YRS) 04/16/2022 Td, adsorbed 12/08/2011 Tdap 12/22/2011 Social History Tobacco Use Types Packs/Day Years [...] on file Legal Sex Female 11:54 PM GASOLINE PLANT OPERATOR Gender Identity Not on file Sexual Orientation Straight 01/21/2024 9: 58 AM CDT Occupation Industry Job Start Date Job End Date [employer]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 [place] Not on file Not on file Not on file Last Filed Vital Signs Vital Sign Reading Time Taken Comments Blood Pressure 126/88 10/21/2024 8:22 AM CDT Pulse 89 10/21/2024 8:22 AM CDT Temperature 36.5 C (97.7 F) 05/20/2024 7:24 AM GASOLINE PLANT OPERATOR Respiratory Rate 16 05/20/2024 7:24 AM GASOLINE PLANT OPERATOR Oxygen Saturation 97% 10/21/2024 8:22 AM CDT Inhaled Oxygen Concentration - - Weight 113 kg (249 lb 3.2 oz) 10/21/2024 8:22 A M CDT Height 175.3 cm (5' 9.02) 10/21/2024 8:22 AM CD T Body Mass Index 36.78 10/21/2024 8:22 AM CDT Plan of Treatment Not on file Procedures Procedure Name Priority Date/Time Associated Diagnosis Comments US BREAST LEFT LIMITED Schedule Routine, Read Routine (OP Routine) 09/01/2024 10:21 AM CDT Abnormal mammogram of left breast DIAGNOSTIC MAMMOGRAM LEFT W CHARAN Schedule Routine, Read Routine (OP Routine) 09/01/2024 9:50 AM CDT Abnormal mammogram of left breast SCREENING MAMMOGRAM BILATERAL W CHARAN Schedule Routine, Read Routine (OP Routine) 07/18/2024 8:50 AM GASOLINE PLANT OPERATOR Encounter for screening mammogram for breast cancer [...] be classified as probably benign. Arelis Simmons WASHING MACHINE MECHANIC IMG MAMMO PROCEDURES Final Result * Diagnostic [...] be classified as probably benign. Arelis Simmons WASHING MACHINE MECHANIC IMG MAMMO PROCEDURES Final Result * (ABNORMAL) SCREENING MAMMOGRAM BILATERAL W CHARAN (07/18/2024 8:50 AM GASOLINE PLANT OPERATOR) Anatomical Region Laterality Modality Breast Bilateral Mammography 07/18/2024 9:29 AM GASOLINE PLANT OPERATOR Impressions 07/18/2024 9:29 AM GASOLINE PLANT OPERATOR 2 focal asymmetries in the outer mid left breast are indeterminant. The patient should return for additional diagnostic mammographic images of the left breast with targeted left breast ultrasound scheduled. BI-RADS: BI-RADS Category 0: Incomplete - Need Additional Imaging Evaluation. The patient has been or will be contacted. Electronically signed by: Kirsty Miguel M.D. Narrative 07/18/2024 9:29 AM GASOLINE PLANT OPERATOR EXAMINATION: SCREENING MAMMOGRAM BILATERAL W CHARAN ORDERING [...] suspicious findings in either breast. Arelis Simmons WASHING MACHINE MECHANIC IMG MAMMO PROCEDURES Final Result from Last 3 Months or Most Recently Relevant to Health [place] [address] [employer] Address: [facility] [address] [place] [address] Visc[employer] Cl[employer] Cuponomia CHOICE [facility] CHOICE [facility] H[facility]/PPO Address: [facility] [id number] [place] [address] [facility] Care Teams Behavioral Services Tech Relationship Specialty Start Date End [place] [id number] PCP - General Family Medicine 06/27/19 Wallis, Irais Phillip MD Referring Physician Dermatology 04/20/18
--- OUTSIDE RECORDS SUMMARY | 2024-11-09 19:07 | XMS_ITS ---
Author Organization [facility] [employer] Address [address] [facility] [address] [place] [address] Care Team Providers Care Signs And Displays Salesperson Name Role Phone Javier Sethi MD Primary Care Provider Hilary Craven Unavailable [phone] Allergies Allergen (clinical drug ingredient) Drug/Non Drug Allergy documented on EMR Reaction Allergy Type Onset Date Status methoserpedine (uncoded) Unknown Allergy Active valproate Divalproex Sodium Unknown Drug Allergy Active amitriptyline Amitriptyline Unknown Drug Allergy Active metoprolol Metoprolol Unknown Drug Allergy Activ e propranolol Propranolol Unknown Drug Allergy Act wolf topiramate Topiramate Unknown Drug Allergy Activ e verapamil Verapamil Unknown Drug Allergy Active REASON FOR VISIT 1 month f/u Medications Medication SIG (Take, Route, Frequency, Duration) Notes Start Date End Date Status Venlafaxine HCl ER 150 MG 1 capsule with food Orally Once a day for 90 days Active Methylphenidate HCl ER (OSM) 18 MG 1 tablet in the morning Orally Once a day for 30 days also on Sunosi for narcolepsy 11/04/2024 12/04/2024 Active ZyrTEC 10 MG 1 tablet Orally Once a day Active Sunosi 150 MG 1 tablet in the morning Orally Once a day Active Losartan Potassium A ctive Xywav 500 MG/ML as directed Orally 06/03/2024 Active Xanax 0.5 MG 1 tablet Orally once a day As needed rare use- NOT prescribed here Active Social History Tobacco Use: Social History Observation Description Date Details (start date - stop date) Never Smoker NA - NA Sex Assigned At : Social History Observation Description Sex Assigned At Female Household Question Answer Notes Marital status: Number of adults in household: 2 Number of children in household: 0 Tobacco Control (Standard) Question Answer Notes Tobacco use: Nonsmoker AUDIT-C (Standard) Question Answer Notes Points 3 Interpretation Negative Did you have a drink contain ing alcohol in the past year? Yes How often did you have six o r more drinks on one occasion in the past year? Less than monthly (1 point) How many drinks did you have on a typical day when you were drinking in the past year? 1 or 2 drinks (0 point) How often did you have a dri nk containing alcohol in the past year? Monthly or less (1 point) Section Notes: Lives in [place] with hus band of 6 yrs, no kids. 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) Active confirmed Vital Signs Blood pressure systolic 138 mm Hg 11/05/19 25 Blood pressure diastolic 88 mm Hg 025 Heart Rate 82 /min 11/04/2024 Weight 254 lbs 11/04/2024 Weight-kg 115.21 kg 11/04/2024 Encounters Encounter Location Date Provider Diagnosis [facility] [employer] [address] [address] 11/04/2024 Hilary Wagner Generalized anxiety disorder F41.1 ; Attention deficit hyperactivity disorder (ADHD), predominantly inattentive type F90.0 ; Narcolepsy without cataplexy G47.419 ; Negative depression screening Z13.31 and Encounter for screening for cardiovascular disorders Z13.6 Assessments Encounter Date Diagnosis (ICD Code) Assessment Notes Treatment Notes Treatment Clinical Notes Section Notes 11/04/2024 Generalized anxiety disorder (ICD-10 - F41.1) 11/04/2024 Attention deficit hyperactivity disorder (ADHD), predominantly inattentive type (ICD-10 - F90.0) OK per Neurology to start stimulant montior blood pressure, as previous trials of adderall caused increase leading to discontinuation. Start low, monitor 11/04/2024 Narcolepsy without cataplexy (ICD-10 - G47.419) 11/04/2024 Negative depression screening (ICD-10 - Z13.31) 11/04/2024 Encounter for screening for cardiovascular disorders (ICD-10 - Z13.6) 11/04/2024 Other Caty Howard, female, presents with sleep difficulties, narcolepsy, and ADHD symptoms, seeking medication management. Narcolepsy Assessment: Patient is currently on Sunosi for narcolepsy management. Dr. Mims has approved continuing this medication alongside potential stimulant therapy for ADHD. Plan: - Monitor for potential interactions with newly prescribed Concerta Attention Deficit Hyperactivity Disorder (ADHD) Assessment: Patient has a history of ADHD with previous trials of atomoxetine and Adderall, which were ineffective or poorly tolerated due to increased blood pressure. Considering alternative stimulant therapy to address ongoing symptoms. Plan: - Initiate Concerta 18 mg - Follow up in 4 weeks to assess efficacy and tolerability - Monitor blood pressure Anxiety Assessment: Patient reports tolerating recent venlafaxine dose reduction well, with stable mood and manageable anxiety. No reports of depression or suicidal thoughts. Plan: - Further reduce venlafaxine: discontinue 37.5 mg capsule, continue 150 mg capsule only - Monitor for any changes in mood or anxiety with dose reduction Hypertension Assessment: Patient's blood pressure was slightly elevated during the visit, which she attributes to forgetting about the appointment. Previous stimulant trial (Adderall) increased blood pressure, necessitating caution with new stimulant therapy. Blood pressure readings have been consistently elevated with follow ups, patient monitors at home routinely and reports it has always been at a stable level. Plan: - Monitor blood pressure closely with initiation of Concerta - Patient advised to watch for palpitations Plan Of Treatment Medication Medication Name Sig Start Date Stop Date Notes Venlafaxine HCl ER 150 MG 1 capsule with food Orally Once a day for 90 days Venlafaxine HCl ER 37.5 MG 1 capsule wit h food Orally Once a day 10/07/2024 decreasing dose Methylphenidate HCl ER (OSM) 18 MG 1 tablet in the morning Orally Once a day for 30 days 11/04/2024 12/04/2024 also on Sunosi for narcolepsy Next Appt Details Follow Up: 4 Weeks, Reason: Progress Notes * Caty HOWARD DDOB:1980 (44 yo F)Acc No.[id number]:11/04/2024 Patient: Chip Caty NEUMANN Provider: Nima Wagner :1980 A ge:44 Y S ex:Female Date:11/04/2024 Address: [id number] Pcp:Javier Sethi MD Subjective: * Chief Complaints: * 1 . 1 month f/u. * HPI: H istory of Presenting Problem: 44 y/o female with history of narcolepsy treated by Dr. Mims, anxiety, and ADHD History of Present Illness Caty Howard, a female patient with a history of narcolepsy and ADHD, presents with concerns about sleep difficulties and medication management. She reports recent issues with sleep, partly attributed to new ear piercings causing discomfort. Despite having four days off recently, she experienced significant fatigue, requiring 2- 3 naps daily after engaging in outdoor activities. The patient mentions consulting with Dr. Brown regarding medication management. Dr. Brown approved the use of a stimulant medication, advising to start at a lower dose while monitoring for palpitations and blood pressure. Caty's blood pressure was slightly elevated during the visit, which she attributes to forgetting about the appointment. She continues to take Sunosi for narcolepsy, and Dr. Brown suggested considering Zepbound, which is approved for sleep apnea. Caty reports experiencing food noise, which has led to relationship strain, including a recent argument with her about potential medication use. She successfully reduced her venlafaxine dosage as previously discussed, with no reported adverse effects on mood or anxiety levels. Regarding her ADHD management, Caty has previously tried atomoxetine and Adderall, with the latter causing increased blood pressure without significant symptom improvement. She expresses openness to trying Concerta, a methylphenidate-based stimulant, as an alternative approach to managing her ADHD symptoms. Medications and Supplements Patient is taking Sunosi for narcolepsy. Venlafaxine dosage was recently reduced; currently taking 150 mg capsule and 37.5 mg capsule. Previously tried atomoxetine and Adderall, but Adderall increased blood pressure and was ineffective. Also tried [place] in the past. Social History - Marital Status: - Living Situation: Lives with - Sleep: Reports difficulty sleeping, takes multiple naps when off work - Physical Activity: Engages in outdoor activities during time off Medical History - Narcolepsy - Sleep apnea - Hypertension - Attention-Deficit/Hyperactivity Disorder (ADHD) Review of Systems General: Positive for fatigue. HEENT: Positive for ear pain affecting sleep. Cardiovascular: Positive for palpitations. Neurological: Positive for excessive daytime sleepiness. Psychiatric: Negative for depression and suicidal thoughts. progress note from Dr. Mims reviewed via [employer] insights: 10/26/24: P sonia no longer on modafinil since no relief. Adderall 30 mg twice a day was lowered to 15 mg twice a day and later discontinued due to elevated blood pressure. Patient psychiatrist wants to put her back on stimulants like Ritalin for her ADHD. Recommended patient to monitor her heart rate and blood pressure closely when she starts taking it. Patient verbalized understanding. This note is transcribed using speech recognition software. It is a reflection of a visit with the patient. It might have some inaccuracy, including medication names and transcribing errors, though efforts have been made to correct them. C ontributing Factors: ADHD Hx: I don't feel like I get distracted very much, it's more hyperfocus. But other people say I'm not focused, and it's like I'm doing what you are telling me to do child: standard classes not in trouble. didn't really care, like whatever. It was a fight always to do homewrk or clean room, or anything I didn't want to do. Grades Cs, sometimes Ds. High school same. college: first time Cs, procrastinate. 2nd time more motivated, got As, I knew only had one shot 03/08/24 ADHD testing: I hated it, I was anxious the whole time Test results: -She made a large number of idiopathic errors, showing significant trouble with test performance. Impairment in the capability to shift between auditory and visual modalities, to make the diagnosis, examiner will need to fully clarify the etiologic subtype based on her medical history. Consider mild neurocognitive impairment. past meds: Qelbree- migraines; a tomoxetine- fatigued, flattened feeling, ineffective Adderall (through [facility]), n ot effective for focus, attention, or fatigue. Increased her blood pressure. D epression Screening: EDITH-7 (2018 Edition) F eeling nervous, anxious, or on edge S everal days N ot being able to stop or control worrying?Not at all W orrying too much about different things N ot at all T rouble relaxing S everal days B eing so restless that it is hard to sit still N ot at all B ecoming easily annoyed or irritable S everal days F eeling afraid as if something awful might happen N ot at all T otal EDITH-7 Score 3 I f you checked any problems, how difficult have they made it for you to do your work, take care of things at home, or get along with other people? N ot difficult at all I nterpretation of Total ( 0 to 4) No Anxiety [place]-Suicide Severity Rating Scale: Suicide Risk (CSRS-screener) i n the past one month Have you wished you were or wished you could go to sleep and not wake up? N o i n the past one month Have you actually had any thoughts of killing yourself? N o H ave you ever done anything, started to do anything, or prepared to do anything to end your life? N o D epression screening: PHQ-9 L ittle interest or pleasure in doing things?Not at all F eeling down, depressed, or hopeless N ot at all T rouble falling or staying asleep, or sleeping too much N ot at all F eeling tired or having little energy N ot at all P oor appetite or overeating N ot at all F eeling bad about yourself or that you are a failure, or have let yourself or your family down N ot at all T rouble concentrating on things, such as reading the newspaper or watching television N ot at all M oving or speaking so slowly that other people could have noticed; or the opposite, being so fidgety or restless that you have been moving around a lot more than usual N ot at all T houghts that you would be better off or of hurting yourself in some way N ot at all T otal Score 0 I nterpretation M inimal Depression Intervention D epression Screening Findings N egative F ollow-Up for Depression P sychiatric follow-up S uicide Risk Assessment Performed 0 11/04/2024 - date * Medical History: P ast Psychiatric History: Anxiety Disorder, ADHD, CKD, GERD, Migraines, Hyperlipidemia, vitamin D deficiency, Benign essential hypertension, Narcolepsy without cataplexy, Hypersomnolence, Type 2 narcolepsy, Chronic fatigue, MOJGAN on CPAP. * Surgical History: s inus surgery , orthopedic surgery . * Social History: T obacco Use: T obacco Control (Standard) T obacco use: N onsmoker D rug/Alcohol: D rugs H ave you used drugs other than those for medical reasons in the past 12 months? N o Do you smoke marijuana?: Denies. Do you drink alcohol?: Yes, extremly rarely. AUDIT-C (Standard) D id you have a drink containing alcohol in the past year? Y es H ow often did you have six or more drinks on one occasion in the past year? L ess than monthly (1 point) H ow many drinks did you have on a typical day when you were drinking in the past year? 1 or 2 drinks (0 point) H ow often did you have a drink containing alcohol in the past year? M onthly or less (1 point) P oints 3 I nterpretation N egative H ousehold: H eugenia M arital status: m arried N umber of adults in household: 2 N umber of children in household: 0 N umber of siblings: 2 1 twin sister and 1 older brother. 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 Safety issues A re there any firearms in the house? N o Advance Care Planning A re you your own decision-maker Y es D o you have Power of Audit Consultant for Health or Medical? N o S ocial History: H eugenia R janice: a dd to notes M arital Status: M arried N umber of Adults in household: 2 N umber of Children in Household: 0 L evel of Education: F inished College F amily Yearly Income: u se notes section L bianca in [place] with of 6 yrs, no kids. Grew up in [place]. * Medications: T aking Sunosi 150 MG Tablet 1 tablet in the morning Orally Once a day , Taking ZyrTEC 10 MG Tablet Chewable 1 tablet Orally Once a day , Taking Losartan Potassium , Taking Xywav 500 MG/ML Solution as directed Orally , Taking Xanax 0.5 MG Tablet 1 tablet Orally once a day As needed, Notes to Pharmacist: rare use- NOT prescribed here, Taking Venlafaxine HCl ER 37.5 MG Capsule Extended Release 24 Hour 1 capsule with food Orally Once a day take with 150 mg, total dose 187.5 mg, Notes to Pharmacist: decreasing dose, Taking Venlafaxine HCl ER 150 MG Capsule Extended Release 24 Hour 1 capsule with food Orally Once a day take with 37.5 mg, total dose 187.5 mg, Medication List reviewed and reconciled with the patient * Allergies: m ethoserpedine, Propranolol, Amitriptyline, Metoprolol, Topiramate, Verapamil, Divalproex Sodium. Objective: * Vitals: B P:138/88mm Hg, HR:82/min, Wt:254lbs, Wt-k.21 kg. * Examination: P sychiatry: M ental Status Examination - Behavior: Cooperative with the evaluation process. - Mood: Patient reports mood as fine and anxiety as manageable. - Thought Process: Linear and goal-directed, able to engage in coherent discussion about medications and treatment options. - Thought Content: Denies current suicidal thoughts when asked directly. - Cognition: Alert and able to participate in the discussion. Demonstrates awareness of appointment times and medication details. Assessment: * Assessment: 1. A ttention deficit hyperactivity disorder (ADHD), predominantly inattentive type - F90.0 (Primary) 2 . G eneralized anxiety disorder - F41.1 3 . N arcolepsy without cataplexy - G47.419 4 . N egative depression screening - Z13.31 5. E ncounter for screening for cardiovascular disorders - Z13.6 Plan: * Treatment: 2. G eneralized anxiety disorder Refill Venlafaxine HCl ER Capsule Extended Release 24 Hour, 150 MG, 1 capsule with food, Orally, Once a day, 90 days, 90 Capsule, Refills 0; S top Venlafaxine HCl ER Capsule Extended Release 24 Hour, 37.5 MG, 1 capsule with food, Orally, Once a day take with 150 mg, total dose 187.5 mg, Notes to Pharmacist: decreasing dose. 3. O thers Clinical Notes: Caty Howard, female, presents with sleep difficulties, narcolepsy, and ADHD symptoms, seeking medication management. Narcolepsy Assessment: Patient is currently on Sunosi for narcolepsy management. Dr. Mims has approved continuing this medication alongside potential stimulant therapy for ADHD. Plan: - Monitor for potential interactions with newly prescribed Concerta Attention Deficit Hyperactivity Disorder (ADHD) Assessment: Patient has a history of ADHD with previous trials of atomoxetine and Adderall, which were ineffective or poorly tolerated due to increased blood pressure. Considering alternative stimulant therapy to address ongoing symptoms. Plan: - Initiate Concerta 18 mg - Follow up in 4 weeks to assess efficacy and tolerability - Monitor blood pressure Anxiety Assessment: Patient reports tolerating recent venlafaxine dose reduction well, with stable mood and manageable anxiety. No reports of depression or suicidal thoughts. Plan: - Further reduce venlafaxine: discontinue 37.5 mg capsule, continue 150 mg capsule only - Monitor for any changes in mood or anxiety with dose reduction Hypertension Assessment: Patient's blood pressure was slightly elevated during the visit, which she attributes to forgetting about the appointment. Previous stimulant trial (Adderall) increased blood pressure, necessitating caution with new stimulant therapy. Blood pressure readings have been consistently elevated with follow ups, patient monitors at home routinely and reports it has always been at a stable level. Plan: - Monitor blood pressure closely with initiation of Concerta - Patient advised to watch for palpitations * Procedure Codes: 9 6127 BEHAV ASSMT W/SCORE & DOCD/STAND INSTRUMENT, 1036F TOBACCO NON-USER, G8510 NEG SCR D PT NOT ELIG F/U/PLN DOC * Preventive Medicine: Screenings: D epression screening Have you had a recent depression screening? Y es * Follow Up: 4 Weeks * Billing Information: * Visit Code: 61616 OFFICE OUTPATIENT VISIT 25 MINUTES DETAILED HISTORY AND EXAM/MODERATE MEDICAL DECISION MAKING. Modifiers: SA * Procedure Codes: 55505 BEHAV ASSMT W/SCORE & DOCD/STAND INSTRUMENT. 1036F TOBACCO NON-USER. G8510 NEG SCR D PT NOT ELIG F/U/PLN DOC. * Electronic signature of Chaim Wagner on 11/09/2024 at 07:06 PM CDT Sign off status: Pending * Provider: Nima Wagner Date: 11/04/2024 Generated for Ami sandoval/Alecia/Masoud on: 11/09/2024 07:06 PM CDT History and Physical Notes * HPI (History of Present Illness) Category Sub-Category Detail Notes Category Not es Depression screening PHQ-9 Little inte rest or pleasure in doing things: Not at all Feeling down, depressed, or hopeless: No t at all Trouble falling or staying asleep, or sl eeping too much: Not at all Feeling tired or having little energy: N ot at all Poor appetite or overeating: Not at all Feeling bad about yourself o r that you are a failure, or have let yourself or your family down: Not at all Trouble concentrating on thi ngs, such as reading the newspaper or watching television: Not at all Moving or speaking so slowly that other people could have noticed; or the opposite, being so fidgety or restless that you have been moving around a lot more than usual: Not at all Thoughts that you would be b magi off or of hurting yourself in some way: Not at all Total Score: 0 Interpretation: Minimal Depression Intervention Depression Screening Findings: N egative Follow-Up for Depression: Psychiatric fo llow-up Suicide Risk Assessment Performed: 11/04 - date Depression Screening EDITH-7 (2018 Edition) Feelin g nervous, anxious, or on edge: Several days Not being able to stop or control worryi ng: Not at all Worrying too much about different things : Not at all Trouble relaxing: Several days Being so restless that it is hard to sit still: Not at all Becoming easily annoyed or irritable: Se veral days Feeling afraid as if something awful audi ht happen: Not at all Total EDITH-7 Score: 3 If you checked any problems, how difficult have they made it for you to do your work, take care of things at home, or get along with other people?: Not difficult at all Interpretation of Total: (0 to 4) No Anx iety [place]-Suicide Severity Rating Scale Suicide Risk (CSRS-screener) in the past one month Have you wished you were or wished you could go to sleep and not wake up?: No in the past one month Have y ou actually had any thoughts of killing yourself?: No Have you ever done anything, started to do anything, or prepared to do anything to end your life?: No Examination Category Sub-Category Detail Notes Category Not es Psychiatry Mental Status Examination - Behavior: Cooperative with the evaluation process. - Mood: Patient reports mood as fine and anxiety as manageable. - Thought Process: Linear and goal-directed, able to engage in coherent discussion about medications and treatment options. - Thought Content: Denies current suicidal thoughts when asked directly. - Cognition: Alert and able to participate in the discussion. Demonstrates awareness of appointment times and medication details.
--- OUTSIDE RECORDS SUMMARY | 2024-11-09 19:07 | XMS_ITS | Patient Health Record ---
Author Organization [facility] Address [address] [place] [address] Care Team Providers Care Information Technology Administrator Name Role Phone Javier Sethi MD Primary Care Provider Hilary Craven Unavailable [phone] [facility] Unavailable [phone] Linda Vance Unavailable [phone] Allergies Allergen (clinical drug ingredient) Drug/Non Drug Allergy documented on EMR Reaction Allergy Type Onset Date Status methoserpedine (uncoded) Unknown Allergy Active valproate Divalproex Sodium Unknown Drug Allergy Active amitriptyline Amitriptyline Unknown Drug Allergy Active metoprolol Metoprolol Unknown Drug Allergy Activ e propranolol Propranolol Unknown Drug Allergy Act wolf topiramate Topiramate Unknown Drug Allergy Activ e verapamil Verapamil Unknown Drug Allergy Active Results Component Value Reference Range Notes UDT Reviewed date:06/03/2024 06:13:52 PM Interpretation: Performing Lab: Notes/Report: THC N 0 - 50 ng/ml Cocaine N 0 - 300 ng/ml Amphetamine N 0 - 1000 ng/ml Buprenorphine (BUP) N 0 - 10 ng/ml Secobarbital (Bar) N 0 - 300 ng/ml Oxazepam (BZO) N 0 - 300 ng/ml 2-gjtciwzrff-2,5-vsmrissk-9,3-diphenylpyrrolidine (JANET P) N 0 - 300 ng/ml Methamphetamine (MET) N 0 - 1000 ng/ml Methylenedioxymethamphetamine (MDMA) N 0 - 500 ng/ml Morphine (MOP 300/[id number]) N 0 - 300 ng/ml Methadone (MTD) N 0 - 300 ng/ml Phencyclidine (PCP) N 0 - 25 ng/ml Nortriptyline (TCA) N 0 - 1000 ng/ml Oxycodone N 0 - 300 ng/ml x N 0 - 300 ng/ml UDT Reviewed date:11/20/2023 04:43:55 PM Interpretation: Performing Lab: Notes/Report: THC N 0 - 50 ng/ml Cocaine N Amphetamine N Buprenorphine (BUP) N Secobarbital (Bar) N Oxazepam (BZO) N 0-iknoawzxvd-1,4-qgdyuggk-3,3-diphenylpyrrolidine (JANET P) N Methamphetamine (MET) N Methylenedioxymethamphetamine (MDMA) N Morphine (MOP 300/[id number]) N Methadone (MTD) N Phencyclidine (PCP) N Nortriptyline (TCA) N x N UDT Reviewed date:09/30/2024 04:17:04 PM Interpretation: Performing Lab: Notes/Report: THC N 0 - 50 ng/ml Cocaine N 0 - 300 ng/ml Amphetamine N 0 - 1000 ng/ml Buprenorphine (BUP) N 0 - 10 ng/ml Secobarbital (Bar) N 0 - 300 ng/ml Oxazepam (BZO) N 0 - 300 ng/ml 1-jamafcgbxl-8,8-yojtmpjb-3,3-diphenylpyrrolidine (JANET P) N 0 - 300 ng/ml Methamphetamine (MET) N 0 - 1000 ng/ml Methylenedioxymethamphetamine (MDMA) N 0 - 500 ng/ml Morphine (MOP 300/SPR4567) N 0 - 300 ng/ml Methadone (MTD) N 0 - 300 ng/ml Phencyclidine (PCP) N 0 - 25 ng/ml Nortriptyline (TCA) N 0 - 1000 ng/ml Oxycodone N 0 - 300 ng/ml x N 0 - 300 ng/ml UDT Reviewed date:03/10/2024 03:26:38 PM Interpretation: Performing Lab: Notes/Report: THC n 0 - 50 ng/ml Cocaine n 0 - 300 ng/ml Amphetamine n 0 - 1000 ng/ml Buprenorphine (BUP) n 0 - 10 ng/ml Secobarbital (Bar) n 0 - 300 ng/ml Oxazepam (BZO) n 0 - 300 ng/ml 9-jqtzdayrmv-2,2-bhyfpmbt-3,3-diphenylpyrrolidine (JANET P) n 0 - 300 ng/ml Methamphetamine (MET) n 0 - 1000 ng/ml Methylenedioxymethamphetamine (MDMA) n 0 - 500 ng/ml Morphine (MOP 300/[id number]) n 0 - 300 ng/ml Methadone (MTD) n 0 - 300 ng/ml Phencyclidine (PCP) n 0 - 25 ng/ml Nortriptyline (TCA) n 0 - 1000 ng/ml Oxycodone n 0 - 300 ng/ml x n 0 - 300 ng/ml UDT Reviewed date:07/01/2024 03:24:48 PM Interpretation: Performing Lab: Notes/Report: THC N 0 - 50 ng/ml Cocaine N 0 - 300 ng/ml Amphetamine N 0 - 1000 ng/ml Buprenorphine (BUP) N 0 - 10 ng/ml Secobarbital (Bar) N 0 - 300 ng/ml Oxazepam (BZO) N 0 - 300 ng/ml 0-dhrnfdcetr-9,5-vloqpags-2,3-diphenylpyrrolidine (JANET P) N 0 - 300 ng/ml Methamphetamine (MET) N 0 - 1000 ng/ml Methylenedioxymethamphetamine (MDMA) N 0 - 500 ng/ml Morphine (MOP 300/[id number]) N 0 - 300 ng/ml Methadone (MTD) N 0 - 300 ng/ml Phencyclidine (PCP) N 0 - 25 ng/ml Nortriptyline (TCA) N 0 - 1000 ng/ml Oxycodone N 0 - 300 ng/ml x N 0 - 300 ng/ml Reason For Referral No Information Medications Medication SIG (Take, Route, Frequency, Duration) Notes Start Date End Date Status Venlafaxine HCl ER 150 MG 1 capsule with food Orally Once a day for 90 days Active Losartan Potassium A ctive Xywav 500 MG/ML as directed Orally 06/03/2024 Active Methylphenidate HCl ER (OSM) 18 MG 1 tablet in the morning Orally Once a day for 30 days also on Sunosi for narcolepsy 11/04/2024 12/04/2024 Active Xanax 0.5 MG 1 tablet Orally once a day As needed rare use- NOT prescribed here Active ZyrTEC 10 MG 1 tablet Orally Once a day Active Sunosi 150 MG 1 tablet in the morning Orally Once a day Active Social History Tobacco Use: Social History [...] less (1 point) Section Notes: Lives in [place] with hus band of 6 yrs, no kids. Grew up in [place], 1 twin sister and 1 older brother. 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 Grew up in [place], 1 twin sister and 1 older brother. 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 Grew up in [place] Lives in [place] with hus band of 6 yrs, no kids. Grew up in [place] Lives in [place] with hus band of 6 yrs, no kids. Grew up in [place] Lives in [place] with hus band of 6 yrs, no kids. Grew up in [place] Lives in [place] with hus band of 6 yrs, no kids. Grew up in [place] Lives in [place] with hus band of 6 yrs, no kids. 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) Active confirmed Problem Attention deficit hyperactivity disorder, predominantly inattentive type (disorder) (38512227) Attention and concentration deficit (R41.840) Active confirmed Problem 08351459 Attention defici t hyperactivity disorder (ADHD), predominantly inattentive type (F90.0) Active confirmed Problem Obstructive sleep apnea syndrome (38135759) MOJGAN on CPAP (G47.33) Active confirmed Problem Benign essential hypertension (3061129) Benign essential hypertension (I10) Active confirmed Problem Chronic fatigue syndrome (92802776) Chronic fatigue (R53.82) 05/05/20 23 Active confirmed Problem Narcolepsy (18187482) 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) 11/20/19 24 Active confirmed Vital Signs Heart Rate 82 /min 11/04/2024 Blood pressure diastolic 88 mm Hg 11/04/2024 Weight-kg 115.21 kg 11/04/2024 Blood pressure systolic 138 mm Hg 11/04/2024 Weight 254 lbs 11/04/2024 Procedures Procedure Date Ordered Date Performed Result Body Sit e ADHD Testing 09/15/2024 09/30/2024 N/A Encounters Encounter Location Date Provider Diagnosis [facility] [employer] [facility] [address] [facility] [address] [place] [address] 11/04/2024 Hilary Wagner Generalized anxiety disorder F41.1 ; Attention deficit hyperactivity disorder (ADHD), predominantly inattentive type F90.0 ; Narcolepsy without cataplexy G47.419 ; Negative depression screening Z13.31 and Encounter for screening for cardiovascular disorders Z13.6 [facility] [employer] [facility] [address] [facility] [address] [facility] [address] [place] [address] 11/20/2023 Linda Vance Generalized anxiety disorder F41.1 ; MOJGAN on CPAP G47.33 and Uncontrolled narcolepsy G47.419 [facility] [employer] [facility] [address] [facility] [address] [place] [address] 02/19/2024 Linda Vance Generalized anxiety disorder F41.1 ; ADHD (attention deficit hyperactivity disorder), combined type F90.2 ; MOJGAN on CPAP G47.33 and Controlled narcolepsy G47.419 [facility] [employer] [facility] [address] [place] [address] 03/08/2024 Ed Vitale Attention and concentration deficit R41.840 [facility] [employer] [facility] [address] [facility] [address] [place] [address] 06/03/2024 Hilary Wagner ADHD (attention defi cit hyperactivity disorder), combined type F90.2 ; Hypersomnolence G47.10 ; MOJGAN on CPAP G47.33 ; Generalized anxiety disorder F41.1 and Type [address] [facility] [address] [place] [address] 07/01/2024 Hilary Wagner ADHD (attention defi cit hyperactivity disorder), combined type F90.2 ; Generalized anxiety disorder F41.1 ; Chronic fatigue R53.82 ; Hypersomnolence G47.10 ; MOJGAN on CPAP G47.33 and Type 2 narcolepsy G47.419 [place] [id number] [place] [address] 07/28/2024 Hilary Wagner ADHD (attention defi cit hyperactivity disorder), combined type F90.2 ; Generalized anxiety disorder F41.1 ; Chronic fatigue R53.82 ; Hypersomnolence G47.10 ; MOJGAN on CPAP G47.33 and Type 2 narcolepsy G47.419 [place] [id number] [facility] [address] [place] [address] 08/25/2024 Hilary Wagner Attention and concentration deficit R41.840 ; Type 2 narcolepsy G47.419 ; Generalized anxiety disorder F41.1 ; MOJGAN on CPAP G47.33 ; Encounter for screening for cardiovascular disorders Z13.6 and Encounter for screening for depression Z13.31 [place] [address] [facility] [address] [place] [address] 09/15/2024 Hilary Wagner Attention and concentration deficit R41.840 ; Generalized anxiety disorder F41.1 and Type [address] [facility] [address] [place] [address] 09/30/2024 Ed Vitale Attention deficit hyperactivity disorder (ADHD), unspecified ADHD type F90.9 [place] [address] [place] [address] 10/07/2024 Hilary Wagner Generalized anxiety disorder F41.1 ; Attention deficit hyperactivity disorder (ADHD), predominantly inattentive type F90.0 ; Narcolepsy without cataplexy G47.419 ; Negative depression screening Z13.31 and Encounter for screening for cardiovascular disorders Z13.6 [facility] [address] [place] [address] 12/31/2023 Linda Vance Generalized anxiety disorder F41.1 [facility], [facility] [address] [place] [address] 03/29/2024 Linda Vance [facility], [facility] [address] [place] [address] 07/06/2024 Hilary Wagner Generalized anxiety disorder F41.1 [facility], [facility] [address] [place] [address] 07/26/2024 Hilary Wagner [facility], [facility] [address] [place] [address] 07/26/2024 Hilary Wagner [facility], [facility] [address] [place] [address] 07/26/2024 Hilary Wagner ADHD (attention defi cit hyperactivity disorder), combined type F90.2 [facility], [facility] [address] [place] [address] 10/27/2024 Hilary Wagner [facility], [facility] [address] [place] [address] 08/26/2024 Hilary Wagner [facility], [facility] [address] [place] [address] 09/15/2024 Hilary Wagner [facility], [facility] [address] [place] [address] 09/15/2024 Hilary [facility], [facility] [address] [place] [address] 09/16/2024 Hilary Wagner [facility], [facility] [address] [place] [address] 09/21/2024 Hilary Wagner [facility], [facility] [address] [place] [address] 09/22/2024 [facility] [address] [place] [address] 09/30/2024 Hilary Wagner Assessments Encounter Date Diagnosis (ICD Code) Assessment Notes Treatment Notes Treatment Clinical Notes Section Notes 12/31/2023 Generalized anxiety disorder (ICD-10 - F41.1) 11/20/2023 Generalized anxiety disorder (ICD-10 - F41.1) cont venlafaxine ER 225mg daily (takes three 75mg) cont xanax 0.5mg daily prn-rare use, has plenty for now, no need to send; keep to rare use decrease caffeine refer to therapy Dx: EDITH, hyperfocus.attenti on concerns remote hx depression Diff: past bipolar dx, not clearly meeting criteria per pt report, monitor MOJGAN-uses CPAP and recent narcolepsy dx PDMR no records UDS neg discuss dx and tx considerations, current meds, she is satisfied with these for mood/anxiety etc. review r/b/se incl BZO and given [facility] B[facility] risks handout-has old script keep to rare use new dx narcolepsy, need to treat this first before consider adhd decrease caffeine recommend therapy, interested, refer here, office will call to schedule f/u in 3 months, call for earlier if concerns 07/26/2024 ADHD (attention deficit hyperactivity disorder), combined type (ICD-10 - F90.2) 07/28/2024 ADHD (attention deficit hyperactivity disorder), combined type (ICD-10 - F90.2) ADHD - No noticeable benefit from atomoxetine, may have increased her fatigue - Testing cannot support diagnosis of ADHD due to cognitive deficits impacting testing ability. - Subjective and objective information suggesst ADHD combined may be likely - History of trying Adderall for narcolepsy, not effective for focus amd attention - Also consider narcolepsy treated with Sunosi during ADHD testing - May explore retesting, test recently changed as well - Open to continuing atomoxetine and attempting to contact for coordination of care regarding treatment options Plan: - Continue atomoxetine at current dose for now (just had it refilled) - Patient instructed to monitor side effects over next couple of weeks - Advised that patient can discontinue atomoxetine if side effects noted or no improvement is seen Anxiety - Currently on venlafaxine 75 mg, 3 capsules once daily total dose 225 mg - Venlafaxine helpful for anxiety and mood stabilization Plan: - Continue venlafaxine at current dosage; discuss potential to decrease next visit - Continue xanax 0.5mg daily as needed- from Dr. Gonzalez, has not been refilled since, has plenty for now, no need to send; keep to rare use - Monitor anxiety and mood Narcolepsy - Diagnosed and treated by Dr. Mims Plan - On Sunosi and Xywav, continue to update providers on changes to treatment regimen - Defer changes to stimulant medications pending consultation with sleep medicine physician - May explore other nonstimulant options if warranted - May also consider retesting follow up in 4 weeks, sooner if concerns arise. 07/06/2024 Generalized anxiety disorder (ICD-10 - F41.1) 08/25/2024 Attention and concentration deficit (ICD-10 - R41.840) Assessment: Patient has been trialing Strattera (atomoxetine) for ADHD concerns, currently at 80 mg. Reports no improvement in attention and focus at this dose, though fatigue has resolved. ADHD testing was inconclusive due to idiopathic errors, she has been advised to consider retesting. History and assessment suggestive of ADHD as possibility, though her reports have been inconsistent upon review of prior notes. Patient is currently on Sunosi (solriamfetol) and Xywav (calcium, magnesium, potassium, and sodium oxybates) through sleep medicine for treatment of narcolepsy. Blood pressure has been stable. Discussed options; Adderall previously given by sleep medicine yielded no positive benefits and led to increase in her blood pressure. Furthermore, given her treatment with Sunosi for narcolepsy, stimulants are not appropriate even with definitive diagnosis. Addressing her concerns using off-label treatment modalities is limitied; Bupropion may effect blood pressure as well as risk reemergence of her anxiety, which is currently being managed by venlafaxine. Fluoxetine not a viable option with her current SNRI therapy. Qelbree could be a potential option if retesting does yield supportive results, cannot get insurance approval without supporting documentation. Plan: - Discontinue Strattera 80 mg as ineffective - Monitor blood pressure and anxiety levels - Consider retesting Anxiety - Currently on venlafaxine 75 mg, 3 capsules once daily total dose 225 mg - Venlafaxine helpful for anxiety and mood stabilization Plan: - Continue venlafaxine at current dosage; explore pootential decrease in future visits - Monitor anxiety and mood Narcolepsy - Diagnosed and treated by Dr. Mims Plan - On Sunosi and Xywav, continue to update providers on changes to treatment regimen - Defer changes to stimulant medications pending consultation with sleep medicine physician 09/30/2024 Attention deficit hyperactivity disorder (ADHD), unspecified ADHD type (ICD-10 - F90.9) Here is a structured analysis and non-pharmacologic treatment recommendations based on the [facility] Clinical Report for Caty Howard: Summary of Findings: ADHD Screening (ASRS): Result: Indicative of ADHD. Part A Score: 5 (threshold is 4 or more). Part B Score: 8 (supportive symptoms). Cognitive Assessment Overview: Cognitive Markers Outside Typical Range: 3 areas flagged. Planning (Spatial Planning): Strong (Percentile 72). Working Memory (Spatial Working Memory): Lower average (Percentile 42). Attention (Feature Match): Minimal errors but slower reaction time (Percentile 47). Response Inhibition (Double Trouble): Elevated errors (Percentile 88) and high interference from distractions. Slowed overall reaction time and elevated reaction time variability (Percentile 95). Sustained Attention (SART): Very few commission errors but some slowing after errors, suggesting difficulty regaining focus after mistakes. Interpretation: ADHD Likelihood: Armin ASRS and cognitive profiles are strongly indicative of ADHD, particularly related to response inhibition and attentional regulation. Cognitive Pattern Recognition: Strengths are noted in planning ability, while weaknesses are concentrated in response inhibition, interference control, and reaction time variability, which are core executive functions affected in ADHD. Congruence of Data: The subjective ASRS report is supported by objective cognitive markers, showing a congruent profile. Non-Pharmacologic Treatment Recommendations: Cognitive Behavioral Therapy (CBT) for ADHD: Focus sessions on improving response inhibition, coping with distractibility, and enhancing emotional regulation. Include techniques to build cognitive resilience after mistakes. Executive Function Skill Enhancement: Structured use of daily planners and digital scheduling apps. Set specific, measurable, achievable goals each day to reduce overwhelm and procrastination. Cognitive Control Training: Use computerized cognitive training programs that specifically target inhibition control and task switching. Exercises that emphasize slowing down response time intentionally to reduce impulsivity. Mindfulness-Based Interventions: Daily mindfulness practice to help stabilize attention and reduce reaction time variability. Incorporate brief mindfulness resets between tasks. Environmental Modifications: Optimize the workspace to reduce visual and auditory distractions. Use task segmentation strategies: divide larger tasks into smaller, clearly defined steps with short breaks. Physical Activity Program: Moderate-intensity aerobic exercise three to four times per week to improve executive function and mental stamina. Sleep and Stress Management: Maintain a consistent sleep schedule to support cognitive performance and emotional regulation. Implement stress management techniques such as progressive muscle relaxation or guided breathing exercises. Self-Monitoring and Reflection: Use self-monitoring logs to track task completion, reaction to distractions, and emotional regulation across days. Reflect weekly on progress and adapt strategies as needed. Periodic Cognitive Monitoring: Recommend reassessment in 6 to 12 months with brief cognitive screenings or repeated ASRS to track improvements or changes. 10/07/2024 Generalized anxiety disorder (ICD-10 - F41.1) 11/20/2023 MOJGAN on CPAP (ICD-10 - G47.33) using CPAP 03/08/2024 Attention and concentration deficit (ICD-10 - R41.840) 02/19/2024 Generalized anxiety disorder (ICD-10 - F41.1) cont venlafaxine ER 225mg daily (takes three 75mg) cont xanax 0.5mg daily prn-rare use, has plenty for now, no need to send; keep to rare use minimize caffeine anxiety manageable, cont current meds feels sleep medicine provider has better control of sx with med changes. complete NANCI/JACOBS testing to eval ADHD f/u after test, or no more than 3-4 months if do not complete test notes: remote hx depression Diff: past bipolar dx, not clearly meeting criteria per pt report, monitor MOJGAN-uses CPAP and recent narcolepsy dx 02/19/2024 ADHD (attention deficit hyperactivity disorder), combined type (ICD-10 - F90.2) help rule in/out with NANCI/JACOBS testing 06/03/2024 ADHD (attention deficit hyperactivity disorder), combined type (ICD-10 - F90.2) ADHD - Testing cannot support diagnosis of ADHD due to cognitive deficits impacting testing ability. - Attention and hyperactive symptoms present but not enough to suggest ADHD - Patient reports inattention, procrastinatio n, and fidgetiness - History of trying Adderall for narcolepsy, not effective for focus amd attention - Also consider nacolepsy treated with Suunosi Plan: - Discuss treatment options with Dr. Mims, narcolepsy specialist - Explore non-stimulant options like Strattera or Qelbree if necessary Anxiety - Currently on venlafaxine 75 mg, 3 capsules once daily - Venlafaxine helpful for anxiety and mood stabilization Plan: - Continue venlafaxine at current dosage - Monitor anxiety and mood follow up in 4 weeks sooner if concerns arise. Consider retesting 07/01/2024 Generalized anxiety disorder (ICD-10 - F41.1) ADHD - Testing cannot support diagnosis of ADHD due to cognitive deficits impacting testing ability. - Patient reports inattention, procrastinatio n, trouble with organization, task completion, and fidgetiness - History of trying Adderall for narcolepsy, not effective for focus amd attention - Also consider nacolepsy treated with Sunosi and Xywav currently, was on these during ADHD testing - May explore retesting, test recently changed as well Plan: - Discuss treatment options with Dr. Mims, narcolepsy specialist - Start Strattera 40 mg daily for now Anxiety - Currently on venlafaxine 75 mg, 3 capsules once daily total dose 225 mg - Venlafaxine helpful for anxiety and mood stabilization Plan: - Continue venlafaxine at current dosage - Continue xanax 0.5mg daily as needed- from Dr. Gonzalez, has not been refilled since, has plenty for now, no need to send; keep to rare use - Monitor anxiety and mood Narcolepsy - Diagnosed and treated by Dr. Mims Plan - Continue Sunosi and Xywav as prescribed by Dr. Mims follow up in 4 weeks sooner if concerns arise. Consider retesting 07/01/2024 ADHD (attention deficit hyperactivity disorder), combined type (ICD-10 - F90.2) ADHD - Testing cannot support diagnosis of ADHD due to cognitive deficits impacting testing ability. - Patient reports inattention, procrastinatio n, trouble with organization, task completion, and fidgetiness - History of trying Adderall for narcolepsy, not effective for focus amd attention - Also consider nacolepsy treated with Sunosi and Xywav currently, was on these during ADHD testing - May explore retesting, test recently changed as well Plan: - Discuss treatment options with Dr. Mims, narcolepsy specialist - Start Strattera 40 mg daily for now Anxiety - Currently on venlafaxine 75 mg, 3 capsules once daily total dose 225 mg - Venlafaxine helpful for anxiety and mood stabilization Plan: - Continue venlafaxine at current dosage - Continue xanax 0.5mg daily as needed- from Dr. Gonzalez, has not been refilled since, has plenty for now, no need to send; keep to rare use - Monitor anxiety and mood Narcolepsy - Diagnosed and treated by Dr. Mims Plan - Continue Sunosi and Xywav as prescribed by Dr. Mims follow up in 4 weeks sooner if concerns arise. Consider retesting 09/15/2024 Generalized anxiety disorder (ICD-10 - F41.1) 09/15/2024 Attention and concentration deficit (ICD-10 - R41.840) 10/07/2024 Attention deficit hyperactivity disorder (ADHD), predominantly inattentive type (ICD-10 - F90.0) 11/04/2024 Generalized anxiety disorder (ICD-10 - F41.1) 11/04/2024 Attention deficit hyperactivity disorder (ADHD), predominantly inattentive type (ICD-10 - F90.0) OK per Neurology to start stimulant montior blood pressure, as previous trials of adderall caused increase leading to discontinuation. Start low, monitor 11/04/2024 Narcolepsy without cataplexy (ICD-10 - G47.419) 09/15/2024 Type 2 narcolepsy (ICD-10 - G47.419) 07/01/2024 Chronic fatigue (ICD-10 - R53.82) ADHD - Testing cannot support diagnosis of ADHD due to cognitive deficits impacting testing ability. - Patient reports inattention, procrastinatio n, trouble with organization, task completion, and fidgetiness - History of trying Adderall for narcolepsy, not effective for focus amd attention - Also consider nacolepsy treated with Sunosi and Xywav currently, was on these during ADHD testing - May explore retesting, test recently changed as well Plan: - Discuss treatment options with Dr. Mims, narcolepsy specialist - Start Strattera 40 mg daily for now Anxiety - Currently on venlafaxine 75 mg, 3 capsules once daily total dose 225 mg - Venlafaxine helpful for anxiety and mood stabilization Plan: - Continue venlafaxine at current dosage - Continue xanax 0.5mg daily as needed- from Dr. Gonzalez, has not been refilled since, has plenty for now, no need to send; keep to rare use - Monitor anxiety and mood Narcolepsy - Diagnosed and treated by Dr. Mims Plan - Continue Sunosi and Xywav as prescribed by Dr. Mims follow up in 4 weeks sooner if concerns arise. Consider retesting 06/03/2024 Hypersomnolence (ICD-10 - G47.10) ADHD - Testing cannot support diagnosis of ADHD due to cognitive deficits impacting testing ability. - Attention and hyperactive symptoms present but not enough to suggest ADHD - Patient reports inattention, procrastinatio n, and fidgetiness - History of trying Adderall for narcolepsy, not effective for focus amd attention - Also consider nacolepsy treated with Suunosi Plan: - Discuss treatment options with Dr. Mims, narcolepsy specialist - Explore non-stimulant options like Strattera or Qelbree if necessary Anxiety - Currently on venlafaxine 75 mg, 3 capsules once daily - Venlafaxine helpful for anxiety and mood stabilization Plan: - Continue venlafaxine at current dosage - Monitor anxiety and mood follow up in 4 weeks sooner if concerns arise. 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 - Subjective and objective information suggesst ADHD combined may be likely - History of trying Adderall for narcolepsy, not effective for focus amd attention - Also consider narcolepsy treated with Sunosi during ADHD testing - May explore retesting, test recently changed as well - Open to continuing atomoxetine and attempting to contact for coordination of care regarding treatment options Plan: - Continue atomoxetine at current dose for now (just had it refilled) - Patient instructed to monitor side effects over next couple of weeks - Advised that patient can discontinue atomoxetine if side effects noted or no improvement is seen Anxiety - Currently on venlafaxine 75 mg, 3 capsules once daily total dose 225 mg - Venlafaxine helpful for anxiety and mood stabilization Plan: - Continue venlafaxine at current dosage; discuss potential to decrease next visit - Continue xanax 0.5mg daily as needed- from Dr. Gonzalez, has not been refilled since, has plenty for now, no need to send; keep to rare use - Monitor anxiety and mood Narcolepsy - Diagnosed and treated by Dr. Mims Plan - On Sunosi and Xywav, continue to update providers on changes to treatment regimen - Defer changes to stimulant medications pending consultation with sleep medicine physician - May explore other nonstimulant options if warranted - May also consider retesting follow up in 4 weeks, sooner if concerns arise. 07/28/2024 Chronic fatigue (ICD-10 - R53.82) ADHD - No noticeable benefit from atomoxetine, may have increased her fatigue - Testing cannot support diagnosis of ADHD due to cognitive deficits impacting testing ability. - Subjective and objective information suggesst ADHD combined may be likely - History of trying Adderall for narcolepsy, not effective for focus amd attention - Also consider narcolepsy treated with Sunosi during ADHD testing - May explore retesting, test recently changed as well - Open to continuing atomoxetine and attempting to contact for coordination of care regarding treatment options Plan: - Continue atomoxetine at current dose for now (just had it refilled) - Patient instructed to monitor side effects over next couple of weeks - Advised that patient can discontinue atomoxetine if side effects noted or no improvement is seen Anxiety - Currently on venlafaxine 75 mg, 3 capsules once daily total dose 225 mg - Venlafaxine helpful for anxiety and mood stabilization Plan: - Continue venlafaxine at current dosage; discuss potential to decrease next visit - Continue xanax 0.5mg daily as needed- from Dr. Gonzalez, has not been refilled since, has plenty for now, no need to send; keep to rare use - Monitor anxiety and mood Narcolepsy - Diagnosed and treated by Dr. Mims Plan - On Ana Cristina and Sonyav, continue to update providers on changes to treatment regimen - Defer changes to stimulant medications pending consultation with sleep medicine physician - May explore other nonstimulant options if warranted - May also consider retesting follow up in 4 weeks, sooner if concerns arise. 08/25/2024 Type 2 narcolepsy (ICD-10 - G47.419) Assessment: Patient has been trialing Strattera (atomoxetine) for ADHD concerns, currently at 80 mg. Reports no improvement in attention and focus at this dose, though fatigue has resolved. ADHD testing was inconclusive due to idiopathic errors, she has been advised to consider retesting. History and assessment suggestive of ADHD as possibility, though her reports have been inconsistent upon review of prior notes. Patient is currently on Sunosi (solriamfetol) and Xywav (calcium, magnesium, potassium, and sodium oxybates) through sleep medicine for treatment of narcolepsy. Blood pressure has been stable. Discussed options; Adderall previously given by sleep medicine yielded no positive benefits and led to increase in her blood pressure. Furthermore, given her treatment with Sunosi for narcolepsy, stimulants are not appropriate even with definitive diagnosis. Addressing her concerns using off-label treatment modalities is limitied; Bupropion may effect blood pressure as well as risk reemergence of her anxiety, which is currently being managed by venlafaxine. Fluoxetine not a viable option with her current SNRI therapy. Qelbree could be a potential option if retesting does yield supportive results, cannot get insurance approval without supporting documentation. Plan: - Discontinue Strattera 80 mg as ineffective - Monitor blood pressure and anxiety levels - Consider retesting Anxiety - Currently on venlafaxine 75 mg, 3 capsules once daily total dose 225 mg - Venlafaxine helpful for anxiety and mood stabilization Plan: - Continue venlafaxine at current dosage; explore pootential decrease in future visits - Monitor anxiety and mood Narcolepsy - Diagnosed and treated by Dr. Mims Plan - On Sunosi and Xywav, continue to update providers on changes to treatment regimen - Defer changes to stimulant medications pending consultation with sleep medicine physician 02/19/2024 Controlled narcolepsy (ICD-10 - G47.419) newer dx, sleep medicine managing 06/03/2024 MOJGAN on CPAP (ICD-10 - G47.33) ADHD - Testing cannot support diagnosis of ADHD due to cognitive deficits impacting testing ability. - Attention and hyperactive symptoms present but not enough to suggest ADHD - Patient reports inattention, procrastinatio n, and fidgetiness - History of trying Adderall for narcolepsy, not effective for focus amd attention - Also consider nacolepsy treated with Suunosi Plan: - Discuss treatment options with Dr. Mims, narcolepsy specialist - Explore non-stimulant options like Strattera or Qelbree if necessary Anxiety - Currently on venlafaxine 75 mg, 3 capsules once daily - Venlafaxine helpful for anxiety and mood stabilization Plan: - Continue venlafaxine at current dosage - Monitor anxiety and mood follow up in 4 weeks sooner if concerns arise. Consider retesting 07/01/2024 Hypersomnolence (ICD-10 - G47.10) ADHD - Testing cannot support diagnosis of ADHD due to cognitive deficits impacting testing ability. - Patient reports inattention, procrastinatio n, trouble with organization, task completion, and fidgetiness - History of trying Adderall for narcolepsy, not effective for focus amd attention - Also consider nacolepsy treated with Sunosi and Xywav currently, was on these during ADHD testing - May explore retesting, test recently changed as well Plan: - Discuss treatment options with Dr. Mims, narcolepsy specialist - Start Strattera 40 mg daily for now Anxiety - Currently on venlafaxine 75 mg, 3 capsules once daily total dose 225 mg - Venlafaxine helpful for anxiety and mood stabilization Plan: - Continue venlafaxine at current dosage - Continue xanax 0.5mg daily as needed- from Dr. Gonzalez, has not been refilled since, has plenty for now, no need to send; keep to rare use - Monitor anxiety and mood Narcolepsy - Diagnosed and treated by Dr. Mims Plan - Continue Sunosi and Xywav as prescribed by Dr. Mims follow up in 4 weeks sooner if concerns arise. Consider retesting 10/07/2024 Negative depression screening (ICD-10 - Z13.31) 11/04/2024 Negative depression screening (ICD-10 - Z13.31) 11/04/2024 Encounter for screening for cardiovascular disorders (ICD-10 - Z13.6) 07/01/2024 MOJAGN on CPAP (ICD-10 - G47.33) ADHD - Testing cannot support diagnosis of ADHD due to cognitive deficits impacting testing ability. - Patient reports inattention, procrastinatio n, trouble with organization, task completion, and fidgetiness - History of trying Adderall for narcolepsy, not effective for focus amd attention - Also consider nacolepsy treated with Sunosi and Xywav currently, was on these during ADHD testing - May explore retesting, test recently changed as well Plan: - Discuss treatment options with Dr. Mims, narcolepsy specialist - Start Strattera 40 mg daily for now Anxiety - Currently on venlafaxine 75 mg, 3 capsules once daily total dose 225 mg - Venlafaxine helpful for anxiety and mood stabilization Plan: - Continue venlafaxine at current dosage - Continue xanax 0.5mg daily as needed- from Dr. Gonzalez, has not been refilled since, has plenty for now, no need to send; keep to rare use - Monitor anxiety and mood Narcolepsy - Diagnosed and treated by Dr. Mims Plan - Continue Sunosi and Xywav as prescribed by Dr. Mims follow up in 4 weeks sooner if concerns arise. Consider retesting 06/03/2024 Generalized anxiety disorder (ICD-10 - F41.1) ADHD - Testing cannot support diagnosis of ADHD due to cognitive deficits impacting testing ability. - Attention and hyperactive symptoms present but not enough to suggest ADHD - Patient reports inattention, procrastinatio n, and fidgetiness - History of trying Adderall for narcolepsy, not effective for focus amd attention - Also consider nacolepsy treated with Suunosi Plan: - Discuss treatment options with Dr. Mims, narcolepsy specialist - Explore non-stimulant options like Strattera or Qelbree if necessary Anxiety - Currently on venlafaxine 75 mg, 3 capsules once daily - Venlafaxine helpful for anxiety and mood stabilization Plan: - Continue venlafaxine at current dosage - Monitor anxiety and mood follow up in 4 weeks sooner if concerns arise. Consider retesting 08/25/2024 MOJGAN on CPAP (ICD-10 - G47.33) Assessment: Patient has been trialing Strattera (atomoxetine) for ADHD concerns, currently at 80 mg. Reports no improvement in attention and focus at this dose, though fatigue has resolved. ADHD testing was inconclusive due to idiopathic errors, she has been advised to consider retesting. History and assessment suggestive of ADHD as possibility, though her reports have been inconsistent upon review of prior notes. Patient is currently on Sunosi (solriamfetol) and Xywav (calcium, magnesium, potassium, and sodium oxybates) through sleep medicine for treatment of narcolepsy. Blood pressure has been stable. Discussed options; Adderall previously given by sleep medicine yielded no positive benefits and led to increase in her blood pressure. Furthermore, given her treatment with Sunosi for narcolepsy, stimulants are not appropriate even with definitive diagnosis. Addressing her concerns using off-label treatment modalities is limitied; Bupropion may effect blood pressure as well as risk reemergence of her anxiety, which is currently being managed by venlafaxine. Fluoxetine not a viable option with her current SNRI therapy. Qelbree could be a potential option if retesting does yield supportive results, cannot get insurance approval without supporting documentation. Plan: - Discontinue Strattera 80 mg as ineffective - Monitor blood pressure and anxiety levels - Consider retesting Anxiety - Currently on venlafaxine 75 mg, 3 capsules once daily total dose 225 mg - Venlafaxine helpful for anxiety and mood stabilization Plan: - Continue venlafaxine at current dosage; explore pootential decrease in future visits - Monitor anxiety and mood Narcolepsy - Diagnosed and treated by Dr. Mims Plan - On Sunosi and Xywav, continue to update providers on changes to treatment regimen - Defer changes to stimulant medications pending consultation with sleep medicine physician 10/07/2024 Encounter for screening for cardiovascular disorders (ICD-10 - Z13.6) 07/28/2024 Hypersomnolence (ICD-10 - G47.10) ADHD - No noticeable benefit from atomoxetine, may have increased her fatigue - Testing cannot support diagnosis of ADHD due to cognitive deficits impacting testing ability. - Subjective and objective information suggesst ADHD combined may be likely - History of trying Adderall for narcolepsy, not effective for focus amd attention - Also consider narcolepsy treated with Sunosi during ADHD testing - May explore retesting, test recently changed as well - Open to continuing atomoxetine and attempting to contact for coordination of care regarding treatment options Plan: - Continue atomoxetine at current dose for now (just had it refilled) - Patient instructed to monitor side effects over next couple of weeks - Advised that patient can discontinue atomoxetine if side effects noted or no improvement is seen Anxiety - Currently on venlafaxine 75 mg, 3 capsules once daily total dose 225 mg - Venlafaxine helpful for anxiety and mood stabilization Plan: - Continue venlafaxine at current dosage; discuss potential to decrease next visit - Continue xanax 0.5mg daily as needed- from Dr. Gonzalez, has not been refilled since, has plenty for now, no need to send; keep to rare use - Monitor anxiety and mood Narcolepsy - Diagnosed and treated by Dr. Mims Plan - On Sunosi and Xywav, continue to update providers on changes to treatment regimen - Defer changes to stimulant medications pending consultation with sleep medicine physician - May explore other nonstimulant options if warranted - May also consider retesting follow up in 4 weeks, sooner if concerns arise. 08/25/2024 Generalized anxiety disorder (ICD-10 - F41.1) Assessment: Patient has been trialing Strattera (atomoxetine) for ADHD concerns, currently at 80 mg. Reports no improvement in attention and focus at this dose, though fatigue has resolved. ADHD testing was inconclusive due to idiopathic errors, she has been advised to consider retesting. History and assessment suggestive of ADHD as possibility, though her reports have been inconsistent upon review of prior notes. Patient is currently on Sunosi (solriamfetol) and Xywav (calcium, magnesium, potassium, and sodium oxybates) through sleep medicine for treatment of narcolepsy. Blood pressure has been stable. Discussed options; Adderall previously given by sleep medicine yielded no positive benefits and led to increase in her blood pressure. Furthermore, given her treatment with Sunosi for narcolepsy, stimulants are not appropriate even with definitive diagnosis. Addressing her concerns using off-label treatment modalities is limitied; Bupropion may effect blood pressure as well as risk reemergence of her anxiety, which is currently being managed by venlafaxine. Fluoxetine not a viable option with her current SNRI therapy. Qelbree could be a potential option if retesting does yield supportive results, cannot get insurance approval without supporting documentation. Plan: - Discontinue Strattera 80 mg as ineffective - Monitor blood pressure and anxiety levels - Consider retesting Anxiety - Currently on venlafaxine 75 mg, 3 capsules once daily total dose 225 mg - Venlafaxine helpful for anxiety and mood stabilization Plan: - Continue venlafaxine at current dosage; explore pootential decrease in future visits - Monitor anxiety and mood Narcolepsy - Diagnosed and treated by Dr. Mims Plan - On Sunosi and Xywav, continue to update providers on changes to treatment regimen - Defer changes to stimulant medications pending consultation with sleep medicine physician 07/28/2024 MOJGAN on CPAP (ICD-10 - G47.33) ADHD - No noticeable benefit from atomoxetine, may have increased her fatigue - Testing cannot support diagnosis of ADHD due to cognitive deficits impacting testing ability. - Subjective and objective information suggesst ADHD combined may be likely - History of trying Adderall for narcolepsy, not effective for focus amd attention - Also consider narcolepsy treated with Sunosi during ADHD testing - May explore retesting, test recently changed as well - Open to continuing atomoxetine and attempting to contact for coordination of care regarding treatment options Plan: - Continue atomoxetine at current dose for now (just had it refilled) - Patient instructed to monitor side effects over next couple of weeks - Advised that patient can discontinue atomoxetine if side effects noted or no improvement is seen Anxiety - Currently on venlafaxine 75 mg, 3 capsules once daily total dose 225 mg - Venlafaxine helpful for anxiety and mood stabilization Plan: - Continue venlafaxine at current dosage; discuss potential to decrease next visit - Continue xanax 0.5mg daily as needed- from Dr. Gonzalez, has not been refilled since, has plenty for now, no need to send; keep to rare use - Monitor anxiety and mood Narcolepsy - Diagnosed and treated by Dr. Mims Plan - On Sunosi and Xywav, continue to update providers on changes to treatment regimen - Defer changes to stimulant medications pending consultation with sleep medicine physician - May explore other nonstimulant options if warranted - May also consider retesting follow up in 4 weeks, sooner if concerns arise. 08/25/2024 Encounter for screening for cardiovascular disorders (ICD-10 - Z13.6) Assessment: Patient has been trialing Strattera (atomoxetine) for ADHD concerns, currently at 80 mg. Reports no improvement in attention and focus at this dose, though fatigue has resolved. ADHD testing was inconclusive due to idiopathic errors, she has been advised to consider retesting. History and assessment suggestive of ADHD as possibility, though her reports have been inconsistent upon review of prior notes. Patient is currently on Sunosi (solriamfetol) and Xywav (calcium, magnesium, potassium, and sodium oxybates) through sleep medicine for treatment of narcolepsy. Blood pressure has been stable. Discussed options; Adderall previously given by sleep medicine yielded no positive benefits and led to increase in her blood pressure. Furthermore, given her treatment with Sunosi for narcolepsy, stimulants are not appropriate even with definitive diagnosis. Addressing her concerns using off-label treatment modalities is limitied; Bupropion may effect blood pressure as well as risk reemergence of her anxiety, which is currently being managed by venlafaxine. Fluoxetine not a viable option with her current SNRI therapy. Qelbree could be a potential option if retesting does yield supportive results, cannot get insurance approval without supporting documentation. Plan: - Discontinue Strattera 80 mg as ineffective - Monitor blood pressure and anxiety levels - Consider retesting Anxiety - Currently on venlafaxine 75 mg, 3 capsules once daily total dose 225 mg - Venlafaxine helpful for anxiety and mood stabilization Plan: - Continue venlafaxine at current dosage; explore pootential decrease in future visits - Monitor anxiety and mood Narcolepsy - Diagnosed and treated by Dr. Mmis Plan - On Sunosi and Xywav, continue to update providers on changes to treatment regimen - Defer changes to stimulant medications pending consultation with sleep medicine physician 07/01/2024 Type 2 narcolepsy (ICD-10 - G47.419) ADHD - Testing cannot support diagnosis of ADHD due to cognitive deficits impacting testing ability. - Patient reports inattention, procrastinatio n, trouble with organization, task completion, and fidgetiness - History of trying Adderall for narcolepsy, not effective for focus amd attention - Also consider nacolepsy treated with Sunosi and Xywav currently, was on these during ADHD testing - May explore retesting, test recently changed as well Plan: - Discuss treatment options with Dr. Mims, narcolepsy specialist - Start Strattera 40 mg daily for now Anxiety - Currently on venlafaxine 75 mg, 3 capsules once daily total dose 225 mg - Venlafaxine helpful for anxiety and mood stabilization Plan: - Continue venlafaxine at current dosage - Continue xanax 0.5mg daily as needed- from Dr. Gonzalez, has not been refilled since, has plenty for now, no need to send; keep to rare use - Monitor anxiety and mood Narcolepsy - Diagnosed and treated by Dr. Mims Plan - Continue Sunosi and Xywav as prescribed by Dr. Mims follow up in 4 weeks sooner if concerns arise. Consider retesting 06/03/2024 Type 2 narcolepsy (ICD-10 - G47.419) ADHD - Testing cannot support diagnosis of ADHD due to cognitive deficits impacting testing ability. - Attention and hyperactive symptoms present but not enough to suggest ADHD - Patient reports inattention, procrastinatio n, and fidgetiness - History of trying Adderall for narcolepsy, not effective for focus amd attention - Also consider nacolepsy treated with Suunosi Plan: - Discuss treatment options with Dr. Mims, narcolepsy specialist - Explore non-stimulant options like Strattera or Qelbree if necessary Anxiety - Currently on venlafaxine 75 mg, 3 capsules once daily - Venlafaxine helpful for anxiety and mood stabilization Plan: - Continue venlafaxine at current dosage - Monitor anxiety and mood follow up in 4 weeks sooner if concerns arise. Consider retesting 08/25/2024 Encounter for screening for depression (ICD-10 - Z13.31) Assessment: Patient has been trialing Strattera (atomoxetine) for ADHD concerns, currently at 80 mg. Reports no improvement in attention and focus at this dose, though fatigue has resolved. ADHD testing was inconclusive due to idiopathic errors, she has been advised to consider retesting. History and assessment suggestive of ADHD as possibility, though her reports have been inconsistent upon review of prior notes. Patient is currently on Sunosi (solriamfetol) and Xywav (calcium, magnesium, potassium, and sodium oxybates) through sleep medicine for treatment of narcolepsy. Blood pressure has been stable. Discussed options; Adderall previously given by sleep medicine yielded no positive benefits and led to increase in her blood pressure. Furthermore, given her treatment with Sunosi for narcolepsy, stimulants are not appropriate even with definitive diagnosis. Addressing her concerns using off-label treatment modalities is limitied; Bupropion may effect blood pressure as well as risk reemergence of her anxiety, which is currently being managed by venlafaxine. Fluoxetine not a viable option with her current SNRI therapy. Qelbree could be a potential option if retesting does yield supportive results, cannot get insurance approval without supporting documentation. Plan: - Discontinue Strattera 80 mg as ineffective - Monitor blood pressure and anxiety levels - Consider retesting Anxiety - Currently on venlafaxine 75 mg, 3 capsules once daily total dose 225 mg - Venlafaxine helpful for anxiety and mood stabilization Plan: - Continue venlafaxine at current dosage; explore pootential decrease in future visits - Monitor anxiety and mood Narcolepsy - Diagnosed and treated by Dr. Mims Plan - On Sunosi and Xywav, continue to update providers on changes to treatment regimen - Defer changes to stimulant medications pending consultation with sleep medicine physician 07/28/2024 Type 2 narcolepsy (ICD-10 - G47.419) ADHD - No noticeable benefit from atomoxetine, may have increased her fatigue - Testing cannot support diagnosis of ADHD due to cognitive deficits impacting testing ability. - Subjective and objective information suggesst ADHD combined may be likely - History of trying Adderall for narcolepsy, not effective for focus amd attention - Also consider narcolepsy treated with Sunosi during ADHD testing - May explore retesting, test recently changed as well - Open to continuing atomoxetine and attempting to contact for coordination of care regarding treatment options Plan: - Continue atomoxetine at current dose for now (just had it refilled) - Patient instructed to monitor side effects over next couple of weeks - Advised that patient can discontinue atomoxetine if side effects noted or no improvement is seen Anxiety - Currently on venlafaxine 75 mg, 3 capsules once daily total dose 225 mg - Venlafaxine helpful for anxiety and mood stabilization Plan: - Continue venlafaxine at current dosage; discuss potential to decrease next visit - Continue xanax 0.5mg daily as needed- from Dr. Gonzalez, has not been refilled since, has plenty for now, no need to send; keep to rare use - Monitor anxiety and mood Narcolepsy - Diagnosed and treated by Dr. Mims Plan - On Sunosi and Xywav, continue to update providers on changes to treatment regimen - Defer changes to stimulant medications pending consultation with sleep medicine physician - May explore other nonstimulant options if warranted - May also consider retesting follow up in 4 weeks, sooner if concerns arise. 11/04/2024 Sherin Howard, female, presents with sleep difficulties, narcolepsy, [...] - Patient advised to watch for palpitations 02/19/2024 Other 06/03/2024 Other ADHD - Testing cannot support diagnosis of ADHD due to cognitive deficits impacting testing ability. - Attention and hyperactive symptoms present but not enough to suggest ADHD - Patient reports inattention, procrastinatio n, and fidgetiness - History of trying Adderall for narcolepsy, not effective for focus amd attention - Also consider nacolepsy treated with Suunosi Plan: - Discuss treatment options with Dr. Mims, narcolepsy specialist - Explore non-stimulant options like Strattera or Qelbree if necessary Anxiety - Currently on venlafaxine 75 mg, 3 capsules once daily - Venlafaxine helpful for anxiety and mood stabilization Plan: - Continue venlafaxine at current dosage - Monitor anxiety and mood follow up in 4 weeks sooner if concerns arise. 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 Work-related stress Assessment: Patient reports significant work-related stress, particularly due to a recent incident involving a patient's . She expresses frustration with inadequate pain management orders for a dying patient, feeling her concerns were dismissed by the attending physician. This situation has caused emotional distress and may be impacting her job satisfaction and overall well-being. Plan: - Encourage ongoing stress-reduction techniques. - Advise patient to follow up if work-related stress continues to impact mental health. Attention Deficit Complaints Assessment: Patient has a history of ADHD symptoms. Previous testing results were inconclusive due to idiopathic errors, but clinical history supports the diagnosis. A retest has been suggested to confirm the diagnosis. Current treatment includes Sunosi, which has stimulant properties. Plan: -Plan for retesting for ADHD at any point to confirm diagnosis. - Discuss potential medication change from Sunosi to an ADHD-specific medication due to contraindication of using multiple stimulants. - Plan to coordinate with Dr. Mims regarding treatment options, she is on Sunosi for narcolepsy 10/07/2024 Other Caty Howard, adult female with history of anxiety, presenting for follow-up of ADHD evaluation and medication management. Attention Deficit Hyperactivity Disorder (ADHD) Assessment: Patient's cognitive testing results strongly indicate ADHD, particularly the predominantly inattentive type. The ADHD assessment showed elevated scores in multiple domains, including planning (72nd percentile), response inhibition, and attention regulation. The overall summary score of 5 (with 4 or greater being indicative of ADHD) supports the diagnosis. The Adult Self-Rating Scale (ASRS) and cognitive profiles are consistent with ADHD. Specific deficits noted in working memory, attention (minimal errors but slower reaction time), and response inhibition (higher interference with distraction and slowed overall reaction). The patient reports difficulty regaining focus after distractions, which is typical of ADHD. Previous trials include Qelbree which caused migraines, Atomoxetine with made her feel fatigued, flattened feeling, and was ultimately ineffective, and Adderall (through sleep medicine) which was not effective and also increased her blood pressure. She expresses interest in trying a methylphenidate medication, however she is also on Sunosi per her Neurologist for treatment of Narcolepsy. Plan: - Discussed potential risks and benefits of stimulant medications - Plan to contact Dr. Mims to discuss stimulant medication options - Recommend Cognitive Behavioral Therapy (CBT) for ADHD - Suggest executive functioning skill enhancement - Advise structured use of planners - Recommend mindfulness practice to help stabilize attention Generalized Anxiety Disorder Assessment: Patient reports overall good anxiety control, interested in dose reduction. Given the stability on the current regimen and the potential for mood fluctuations and withdrawal symptoms, a gradual dose reduction is planned. Plan: - Decrease venlafaxine from 225 mg daily to 187.5 mg daily - Informed patient about potential withdrawal symptoms including brain fog, headaches, fatigue, and brain zaps - Advised to monitor for side effects, especially during the first week - Monitor for recurrence of panic attacks or increased anxiety symptoms - Encourage use of coping strategies during high-stress situations - Follow up in 4 weeks Plan Of Treatment No Information Insurance Providers Payer Name Payer Address Payer Phone Subscriber Number Group Number Insured Name Patient Relationship to Insured Coverage Start Date Coverage End Date [facility] [address] [place] [phone] [id number] Caty Howard Self - patient is the insured Medical (General) History Medical History History ICD Code Past Psychiatric History: Anxiety Disord er, ADHD CKD GERD Migraines hyperlipidemia vitamin D deficiency Benign essential hypertension I10 Narcolepsy without cataplexy G47.419 Hypersomnolence G47.10 Type 2 narcolepsy G47.419 Chronic fatigue R53.82 MOJGAN on CPAP G47.33 Surgical History Surgery Date(Month/Year) sinus surgery orthopedic surgery
--- OUTSIDE RECORDS SUMMARY | 2024-11-09 19:11 | XMS_ITS | Continuity of Care Document ---
Author Organization [facility] [place] Address [address] [place] [address] [address] [place] [address] Phone Care Team Providers Care Tube Washer Name Role Phone Butler YANELY/Mary Barnett CHT [...] Diagnoses Date Provider Providers Copied on Encounter [facility] [address] [place] [address], [id number], tel:[phone] Jaquan Pain in right wristStiffness of left wrist, not elsewhere classifiedWeakness Apr-0 3-201 8 Butler Mary. [address] [facility] [address], [place], [facility], [place]. tel:[phone] Referring Provider: Migue Patel [facility] [address], [place], [address]. tel:[phone] [address], [place], [place], [id number], tel:[phone] [place] Pain in right wristStiffness of left wrist, not elsewhere classifiedWeakness Aug-3 0-201 8 Butler Mary. [address] [facility], [address], [place], [address], [place]. tel:[phone] Referring Provider: Lee Patel[address] [facility] [address], [place], [address]. tel:[phone], [place], [place], [id number], tel:[phone] Jaquan Pain in right wristStiffness of left wrist, not elsewhere classifiedWeakness Aug-2 8-201 8 Butler Mary. [address] [facility], [address], [place], [place], [facility], [place]. tel:[phone] Referring Provider: Lee Patle[address] [facility] [address], [place], [address]. tel:[phone] [address], [place], [place], [id number], tel:[phone] Jaquan Pain in right wristStiffness of left wrist, not elsewhere classifiedWeakness Mar-2 3-201 8 Carrie Hernandez. [address] [place] [address], [address], [place], [facility], [place]. tel:[phone] Referring Provider: Boom Sewell, Lee[address] [facility] [address], [place], [address]. tel:[phone] [address], [place], [place], [id number], tel:[phone] Jaquan No Information Mar-1 6-201 8 Butler Mary. [address] [place] [address], [address], [place], [facility], [place]. tel:[phone] Referring Provider: Migue Patel [facility] [address], [place], [address]. tel:[phone] [address], [place], [place], [id number], [place] tel:[phone] [place] No Information Mar-1 4-201 8 Carrie Fuchsah. [address] [place] [address], [address], [place], [facility], [place]. tel:[phone] Referring Provider: Migue Patel [facility] [address], [place], [address]. tel:[phone], [id number], [place] tel:[phone] [place] No Information Mar-0 9-201 8 Carrie Hernandez. [address] [place] [address], [address], [place], [facility], [place]. tel:[phone] Referring Provider: Lee Patel[address], [place], [address]. tel:[phone], [place], [place], [id number], [place] tel:[phone] Jaquan Pain in right wristStiffness of left wrist, not elsewhere classifiedWeakness Mar-0 6-201 8 Carrie Hernandez. [address] [facility], [address], [place], [address], [place]. tel:[phone] Referring Provider: Boom Sewell, [address] [place] [address] [address], [place], [address]. tel:[phone] Family History Family Member Type Diagnosis Age At Onset No Information Payers Payer name Insurance type Covered libertarian ID Authorzarinaa giovanni(s) Aileen CI [id number] Social History Type Description Quantity Date Captured [...]
[2024-11-09 19:17] VITALS: BP 136/96; PULSE 93; RESP 20; TEMP 36.5; O2SAT 99
--- NOTE | 2024-11-09 19:23 | ED.UPPEXIN ---
HPI - Extremity Injury (Upper) General Chief Complaint: Extremity Injury, Upper Stated Complaint: rt finger injury Source: patient Mode of arrival: ambulatory Limitations: no limitations History of Present Illness HPI narrative: Patient is a 44 year old female who presents to the clinic with complaints of pain to her right index finger. She slammed her finger in her car door an hour ago. She states she had her last tetanus shot in 2023. Denies any radiation of pain, tingling, or numbness. Related Data Home Medications ?Medication ?Instructions ?Recorded ?Confirmed ?Last Taken ?Type erenumab-aooe 70 mg/mL mg subcut 11/09/24 Unknown History subcutaneous auto-injector (Aimovig Autoinjector) losartan 25 mg tablet mg 11/09/24 Unknown History methylphenidate HCl 18 mg mg PO 11/09/24 Unknown History tablet,extended release 24 hr sodium, calcium, magnesium, PO 11/09/24 Unknown History potassium oxybates 0.5 gram/mL oral soln (Xywav) solriamfetol 150 mg tablet (Sunosi) mg 11/09/24 Unknown History venlafaxine 150 mg mg PO 11/09/24 Unknown History capsule,extended release 24 hr Allergies Allergy/AdvReac Type Severity Reaction Status Date / Time No Known Allergies Allergy Verified 11/09/24 19:19 Review of Systems Review of Systems: CONSTITUTIONAL: Denies body aches, fever, chills EYES: Denies visual changes ENT: Denies rhinorrhea, congestion CARDIOVASCULAR: Denies chest pain, palpitations, or edema. RESPIRATORY: Denies cough or dyspnea. SKIN: Denies rash or itching. Reports open wound on right index finger. MUSCULOSKELETAL: Denies back pain, joint pain, or myalgia. Reports pain to right index finger. NEUROLOGIC: Denies headache, numbness, tingling, or weakness. All systems reviewed & are unremarkable except as noted in HPI and below PMFSH Comments At time of signature, I have reviewed and agree with nursing past medical, surgical, social and family history unless otherwise noted. Please see nursing chart for further information. There is no relevant family history pertinent to the presenting complaint. Exam Narrative: MUSCULOSKELETAL EXAM GENERAL: Well-appearing, well-nourished, and in no acute distress. HEAD: Normocephalic, atraumatic. NECK: Supple. CHEST: Speaks in full sentences. No respiratory distress. HEART: Regular rate and rhythm. Normal and equal peripheral pulses. EXTREMITIES: Right index finger has normal strength and sensation, decreased range of motion, but endorses pain with movement. Edema and ecchymosis noted, No point tenderness. There is a flap abrasion to the right index finger. No skin tenting, or obvious deformity; alignment normal, pulse palpable and equal bilaterally, skin warm, dry, pink. Capillary refill less than 3 seconds. SKIN: Warm, dry, no rash. NEURO: Alert and oriented x3. PSYCH: Normal mood and affect Course Course Level of Care: Express Care Visit Vital Signs Vital signs: Vital Signs Temperature 97.7 F 11/09/24 19:17 Pulse Rate 93 11/09/24 19:17 Respiratory Rate 20 11/09/24 19:17 Blood Pressure 136/96 H 11/09/24 19:17 Pulse Oximetry 99 11/09/24 19:17 Oxygen Delivery Room Air 11/09/24 19:17 Temperature 97.7 F 11/09/24 19:17 Pulse Rate 93 11/09/24 19:17 Respiratory Rate 20 11/09/24 19:17 Blood Pressure 136/96 H 11/09/24 19:17 Pulse Oximetry 99 11/09/24 19:17 Oxygen Delivery Room Air 11/09/24 19:17 Reviewed. MDM - Extremity Injury (Upper) MDM Narrative Medical decision making narrative: Discussed physical exam findings and xray. Finger splint and dressing applied per RN. Advised supportive measures and signs/symptoms to go to the ER. Pt is appropriate for outpatient treatment and follow up. Differential Diagnosis Differential diagnosis: Likely finger sprain and dislocation of finger Imaging Data Radiologist's impression: ITS Impressions Finger X-Ray 11/09/24 19:34 IMPRESSION: Chip fracture in the tuft of the second finger distal phalanx. Critical Care Time Critical Care Time Critical Care Time: No Discharge Plan Discharge Clinical Impression: Fracture of finger Qualifiers: Encounter type: initial encounter Finger: index finger Fracture type: closed Phalanx: distal Fracture alignment: nondisplaced Laterality: right Qualified Code(s): S62.660A - Nondisplaced fracture of distal phalanx of right index finger, initial encounter for closed fracture Patient Disposition: Home Condition: Stable Instructions: Finger Fracture (ED) Additional Instructions: Rest, ice and elevate the affected extremity. Motrin every 8 hours, as needed, for pain (take with food). Tylenol every 8 hours. Keep splint clean, dry and in place. Use garbage bag while showering to keep splint dry. Use sling Go to the ER immediately for increased pain, tingling/numbness, swelling, redness, and fever Follow up with Orthopedic Surgery in 1-2 days for further evaluation - please call today for an appointment. Patient Language: [place] Citizen Prescriptions: No Action venlafaxine 150 mg capsule,extended release 24hr PO losartan 25 mg tablet methylphenidate HCl 18 mg tablet extended release 24hr PO Aimovig Autoinjector 70 mg/mL auto-injector SUBCUT Sunosi 150 mg tablet Xywav 0.5 gram/mL solution PO Follow-up/Referrals: Aniket Mohan MD [Physician] - Harms,Javier Brady M.D. [Primary Care Provider] - Stand Alone Forms: Work/School Release IP Time of Disposition: 19:45
== END 2024-11-09 19:55 | disposition home or self-care (01) ==
PROVIDERS: PCP Family Medicine
DX: S62.660A Nondisplaced fracture of distal phalanx of right index finger, initial encounter for closed fracture (principal); W23.2XXA Caught, crushed, jammed or pinched between a moving and stationary object, initial encounter
CPT/HCPCS: 29130; 73140; 99214; G0463